=== PATIENT | female | born 1965 | race Caucasian/White ===

== ENCOUNTER 2021-05-15 06:44 | Outpatient (REF) | payer OTHER, SELFPAY ==
[2021-05-15 11:13] LABS: MANUAL DIFF FLAG NO
[2021-05-15 11:36] LABS: Basophils Percent Auto 0.9 % (0-2); Eosinophils Absolute Auto 0.1 X10*3/uL (0.0-0.4); Eosinophils Percent Auto 2.9 % (0-4); Hematocrit 41.5 % (37-47); Hemoglobin 13.4 g/dl (12.0-16.0); Imm Gran Abs Auto 0.01 X10*3/uL (0.00-0.03); Imm Gran Pct Auto 0.2 % (0.0-0.4); Lymphocytes Absolute Auto 0.9 X10*3/uL (1.2-4.9); Lymphocytes Percent Auto 18.9 % (20-40); Mean Corpuscular HGB Conc 32.3 g/dl (31.0-35.0); Mean Corpuscular Hemoglobin 31.5 pg (27.0-33.0); Mean Corpuscular Volume 97.4 fL (80-98); Monocytes Absolute Auto 0.5 X10*3/uL (0.1-1.2); Neutrophils Percent Auto 66.1 % (45-73); Platelet Count 266 X10*3/uL (160-400); Red Blood Count 4.26 X10*6/uL (4.20-5.50); Red Cell Distribution Width 12.7 % (11.0-16.0); White Blood Count 4.6 X10*3/uL (4.8-10.8)
[2021-05-15 11:58] LABS: Alanine Aminotransferase 9 U/L (0-31); Anion Gap 14 (12-20); Aspartate Amino Transferase 12 U/L (5-31); Blood Urea Nitrogen 15 mg/dL (9-16); Calcium 9.6 mg/dL (8.4-10.2); Carbon Dioxide 27 mmol/L (22-29); Chloride 107 mmol/L (96-108); Cholesterol 194 mg/dL; Estimated Glomerular Filt Rate > 60; Glucose Fasting 86 mg/dL (60-99); HDL Cholesterol 48 mg/dL; LDL Cholesterol Calculated 123 mg/dl; Potassium 4.3 mmol/L (3.3-5.1); Sodium 144 mmol/L (135-145); Triglycerides 116 mg/dL
[2021-05-15 12:19] LABS: Vitamin D 25-OH Total 11.9 ng/mL (>30)
== END 2021-05-15 06:45 | disposition home or self-care (01) ==
LOC: HO.HMGCLDS 06:44
PROVIDERS: PCP Internal Medicine; Visit Provider Internal Medicine
DX: C53.9 Malignant neoplasm of cervix uteri, unspecified (principal); I10 Essential (primary) hypertension; K21.9 Gastro-esophageal reflux disease without esophagitis
CPT/HCPCS: 36415; 80048; 80061; 82306; 84450; 84460; 85025

== ENCOUNTER 2022-07-08 10:12 | Outpatient (REF) | payer OTHER, SELFPAY ==
[2022-07-08 11:20] LABS: MANUAL DIFF FLAG NO
[2022-07-08 11:27] LABS: Basophils Percent Auto 0.7 % (0-2); Eosinophils Absolute Auto 0.1 X10*3/uL (0.0-0.4); Eosinophils Percent Auto 1.3 % (0-4); Hematocrit 47.6 % (37.0-47.0); Hemoglobin 15.4 g/dl (12.0-16.0); Imm Gran Abs Auto 0.01 X10*3/uL (0.00-0.03); Imm Gran Pct Auto 0.2 % (0.0-0.4); Lymphocytes Absolute Auto 0.7 X10*3/uL (1.2-4.9); Mean Corpuscular HGB Conc 32.4 g/dl (31.0-35.0); Mean Corpuscular Hemoglobin 29.8 pg (27.0-33.0); Mean Corpuscular Volume 92.2 fL (80.0-98.0); Mean Platelet Volume 10.2 fL (9.4-12.3); Monocytes Absolute Auto 0.4 X10*3/uL (0.1-1.2); Monocytes Percent Auto 9.5 % (2-11); Neutrophils Absolute Auto 3.4 x10*3/uL (2.0-8.3); Neutrophils Percent Auto 73.3 % (45-73); Platelet Count 255 X10*3/uL (160-400); Red Blood Count 5.16 X10*6/uL (4.20-5.50); Red Cell Distribution Width 12.4 % (11.0-16.0); White Blood Count 4.6 X10*3/uL (4.8-10.8)
[2022-07-08 14:35] LABS: Alanine Aminotransferase 12 U/L (0-31); Anion Gap 16 (12-20); Aspartate Amino Transferase 17 U/L (5-31); Blood Urea Nitrogen 11 mg/dL (9-16); Calcium 9.7 mg/dL (8.4-10.2); Carbon Dioxide 28 mmol/L (22-29); Chloride 103 mmol/L (96-108); Cholesterol 239 mg/dL; Estimated Glomerular Filt Rate > 60; Glucose Fasting 108 mg/dL (60-99); HDL Cholesterol 57 mg/dL; LDL Cholesterol Calculated 157 mg/dl; Potassium 4.3 mmol/L (3.3-5.1); Sodium 143 mmol/L (135-145); Triglycerides 128 mg/dL
[2022-07-08 14:58] LABS: TSH reflex Free T4 0.82 uIU/mL (0.32-4.0); Vitamin D 25-OH Total 15.1 ng/mL (>30)
== END 2022-07-08 10:13 | disposition home or self-care (01) ==
LOC: HO.HMGCLDS 10:12
PROVIDERS: PCP Internal Medicine; Visit Provider Internal Medicine
DX: K21.9 Gastro-esophageal reflux disease without esophagitis (principal); I10 Essential (primary) hypertension; R00.2 Palpitations; R45.0 Nervousness; G47.00 Insomnia, unspecified
CPT/HCPCS: 36415; 80048; 80061; 82306; 84443; 84450; 84460; 85025

== ENCOUNTER → 2022-10-12 13:44 | Outpatient (BNVA) | payer BC, SELFPAY | PROVIDERS: PCP Internal Medicine; Referring Provider Internal Medicine; Visit Provider Internal Medicine | DX: Z13.89 Encounter for screening for other disorder (principal) ==

== ENCOUNTER → 2022-11-12 13:40 | Outpatient (REF) | payer BC, SELFPAY ==
--- NOTE | 2022-11-12 | CA_ITS ---
Transthoracic Echocardiogram Patient (Last, First, Middle): Breonna Hargrove L Gender: Female Date of : 1965 Age: 56 Procedure Date: 11/12/2022 Procedure Type: Transthoracic Echocardiogram Location: OP Height: 162.56 cm Weight: 95.26 kg BSA: 2.00 m2 Heart Rate: 61 bpm BP: 118 / 68 mmHg Informatics Analyst: Referring MD: Ranjan Salomon MD Symptoms: I48.91 - Unspecified atrial fibrillation Study Quality: Adequate w contrast ECG Rhythm: Sinus Conclusions: - The left ventricular systolic function is normal. The visually estimated ejection fraction is between 55-60%. - No obvious valvular pathology seen on this study. Findings Procedure Information Contrast agent, definity, is being given per protocol without apparent complications. Left Ventricle Normal left ventricular cavity size. There is normal left ventricular wall thickness. The left ventricular systolic function is normal. The visually estimated ejection fraction is between 55-60%. There is no evidence of regional wall motion abnormalities. Diastolic function is normal for age. Right Ventricle Normal right ventricular cavity size and systolic function. Atria Both atria are normal in size. Aortic Valve The aortic valve was not well visualized. There is no aortic valve stenosis. There is no aortic valve regurgitation. Mitral Valve The mitral valve appears normal. There is no mitral valve regurgitation. There is no mitral valve stenosis. Pulmonic Valve The pulmonic valve is likely normal. Tricuspid Valve The tricuspid valve was not well visualized. There is trace tricuspid valve regurgitation. There is no evidence of pulmonary hypertension. Great Vessels The asc aorta is normal in size. Venous The inferior vena cava is normal in size and collapses greater than 50% with inspiration. Pericardium/Pleural There is no evidence of pericardial effusion. Prior Study Comparison No prior study available for comparison. Recommendations, Care & Conclusions No obvious valvular pathology seen on this study. Measurements 2D Linear Measurements IVSd: 0.72 0.6-0.9/0.6-1.0 cm LVIDd: 4.17 3.9-5.3/4.2-5.9 cm LVIDd Index: 2.09 2.4-3.2/2.2-3.1 cm/m2 LVIDs: 2.60 2.0-3.6 cm LVPWd: 0.82 0.7-1.1 cm LA Diam: 3.00 2.7-3.8/3.0-4.0 cm LAIDs Index: 1.50 1.5-2.3 cm/m2 LV Mass: 118.10 67-162/88-224 g LV Mass Index: 59.05 43-95/49-115 g/m2 LVOT Diam: 2.40 3.0+(-)1.3 cm 2D Systolic Function EF 4C: 61.30 >55% EF 2C: 60.90 >55% EF BiP: 59.80 >55% Mitral Valve MV Pk E: 0.77 MV PK A: 0.58 MV Decel Time: 225.00 E/A: 1.30 E'Lateral: 15.00 E'Medial: 9.46 E/E' Med: 8.10 E/E' Lat: 5.10 PHT: 66.00 MVA PHT: 3.33 Decel Dodge: 3.40 Aortic Valve AoV Pk Fransisco: 1.05 AoV Mn Fr[place]isco: 0.67 AoV VTI: 0.28 AoV Pk Grad: 4.00 Aov Mn Grad: 2.00 MAKAYLA Cont.VTI: 3.02 LVOT LVOT Pk [place]: 0.75 LVOT Mn [place]: 0.45 LVOT VTI: 0.19 LVOT Pk Grad: 2.00 LVOT Mn Grad: 1.00 LVOT Diam: 2.40 LVOT Area: 4.52 Diastolic Function MV Pk E: 0.77 MV Pk A: 0.58 E/A: 1.30 E'Medial: 9.46 E/E' Med: 8.10 E' Laterial: 15.00 E/E' Lat: 5.10 Right Ventricle TAPSE (mm): 25.30 TVS' Fransisco: 10.10 Tricuspid Valve TR Pk Fr[place]: 1.88 TR Pk Grad: 14.00 RA Press: 3.00 RVSP: 17.00 Great Vessels Aorta Sinus of Valsalva: 3.20 2.0-3.5 cm Ao Asc: 3.00 2.1-3.4 cm Pulmonary Valve PV Pk Fransisco: 0.73 Peak PV Grad: 2.00 Updated in Other Vendor System with Status of Final Ranjan Salomon MD electronically signed on 11/13/2022 1:11:43 PM with status of Final
--- NOTE | 2022-11-12 13:44 | HM_ITS ---
* Total monitoring time about 7 days. * Underlying rhythm is sinus. Average ventricular rate 64/Min. Range 47 to 115/Min. * Occasional PACs with a burden of 0.35%. Very brief runs noted. * Occasional PVCs with a burden of 0.02%. Rare couplets, 1 triplet. No significant runs. * No pauses or AV blocks. * No patient markers or events in diary. MTDD
== END ==
LOC: HO.CARD 13:40
PROVIDERS: Visit Provider Internal Medicine
DX: I48.91 Unspecified atrial fibrillation (principal)
CPT/HCPCS: 93242; 93306; Q9957

== ENCOUNTER 2024-04-28 11:41 | Outpatient (AMB) | payer BC, SELFPAY ==
[2024-04-28 11:44] VITALS: BP 144/90; PULSE 62; TEMP 36.6; O2SAT 98; BMI 36.9
--- NOTE | 2024-04-28 11:44 | AM.OFFWIN_ITS ---
Intake Vital Signs 04/28/24 11:44 Height 5 ft 4 in Weight 215 lb BMI 36.9 BP 144/90 H Blood Pressure Location Rt brachial Position Sitting Pulse 62 Pulse Source Pulse Oximeter Temp 97.9 F Temp Source Temporal Artery Scan Pulse Oximetry (%) 98 Oxygen Delivery Method Room Air Intake Visit Reasons: EP fire pain feet/?bp Intake Note: pt is here for feet pain and possible high bp Patient Tobacco Use Status: Current everyday Tobacco user Allergies Penicillins [PENICILLINS] Allergy (Intermediate, Verified 04/28/24 11:44) HIVES PEACHES Allergy (Unknown, Uncoded 10/12/22 13:52) HIVES Do you need a note to return to daycare/school/sports/work: No HPI HPI Comments History of Present Illness Details 58 year old female presents for bilatera l burning of the feet, endorses some numbness lower top of the feet. There addition patient has been without her blood pressure medication. Patient has appointment scheduled with her primary on the but her primary recommended she come to the walk-in for concern blood pressure being cause of patient's feet pain. Patient states she does have a history of neuropathy back when she was 23 it was idiopathic in nature. She received multiple modalities of treatment as well as other or specialist evaluations. Pain is described as a deep burning sensation worse with standing and moving no overt swelling no calf tenderness [facility] Medical History (Updated 04/28/24 @ 14:52 by JASON Bella) PAF (paroxysmal atrial fibrillation) Atrial fibrillation with rapid ventricular response Insomnia History of renal calculi Opiate addiction History of meningitis Smoker unmotivated to quit Squamous cell carcinoma of cervix, stage 2 GERD (gastroesophageal reflux disease) Essential hypertension Surgical History No pertinent past surgical history Family History Mother Leukemia Maternal Grandmother Ovarian cancer Diabetes mellitus Sister Diabetes mellitus Social History Housing: Apartment Patient Tobacco Use Status: Current everyday Tobacco user Cigarettes Per Day: 10 e-Cigarette/Vaping Use: Never Used service: No Current occupational status: employed Cognitive needs: No Hearing needs: No Vision needs: Yes Physical Exam Vital Signs: Last Vital Signs Temp 97.9 F 04/28/24 11:44 Pulse 62 04/28/24 11:44 BP 144/90 H 04/28/24 11:44 Pulse Ox 98 04/28/24 11:44 Oxygen Delivery Method Room Air 04/28/24 11:44 BMI result Body Mass Index 36.9 Const General: cooperative, healthy appearing, no acute distress and alert Orientation/consciousness: patient oriented x3 Limitations: no limitations HEENT Head: Yes normal to inspection Ears: hearing grossly normal bilaterally General nose exam: Normal external nose present Resp Effort & Inspection: normal respiratory effort and able to speak in complete sentences Cardio Rate: regular rate Skin General skin exam: no rashes or lesions noted Neuro General: patient oriented x3 Extrem Other: No lower extremity swelling mild numbness on the dorsum of the foot bilaterally. No tenderness to palpation on the plantar surface of the foot bilaterally General: Yes normal to inspection Assessment & Plan Assessment & Plan (1) Essential hypertension: Code(s): I10 - Essential (primary) hypertension Plan: Blood pressure mildly elevated 140s over 90s. Will refill patient's hypertension medication (2) Bilateral foot pain: Code(s): M79.671 - Pain in right foot; M79.672 - Pain in left foot Plan: Given patient's presentation of suspicion could be return if patient has idiopathic neuropathy. Patient's blood pressure mildly elevated today no swelling or edema low suspicion that is contributing to patient's pain. Offered topical solutions to use in preparation for patient's appointment for the . Patient would like to wait right now and speak to her primary on the 10 as she has dealt with this before and feels it is currently manageable. Medications: New lisinopril 5 mg PO DAILY 90 tabs 0RF Coding Level of Care Code Est Pt Level 4 (75401) Diagnoses Essential hypertension I10 Bilateral foot pain M79.671; M79.672
--- OUTSIDE RECORDS SUMMARY | 2024-04-29 00:38 | XMS_ITS | Continuity of Care Document ---
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 Oncology [address] [place] [id number] Attending Physician: Tamika Patrick Admitting Physician: Tamika Patrick Referring Physician: Tamika Patrick Allergies, Adverse Reactions, Alerts Substance Reaction Severity Status penicillin rash Active Eddy hives Active Medications lisinopril 5 mg oral tablet 5 mg, 1, tablet, By Mouth, Daily, Refills 0, Maintenance, 07/02/19 9:09:02 EDT Start Date: 07/02/19 Status: Ordered Prilosec OTC = 20 mg, By Mouth, Daily, 0 Refills, Maintenance, 02/09/20 10:51:00 EDT Start Date: 02/09/20 Status: Ordered Problem List Condition Confirmation Course Effective Dates Status Health St at[facility] Informant Fatty liver Confirmed Active Hypertension Confirmed Active Cervical cancer Confirmed Active Obese class II Confirmed Active OBESITY Confirmed Active UNSPECIFIED IDIOPATHIC PERIPHERAL NEUROPATHY--painful Confirmed 1994 Active Social History Social History Type Response Smoking Status 5-9 cigarettes (betw een 1/4 to 1/2 pack)/day in last 30 days entered on: 07/02/19 Sex Patient Care team information Care Team Personnel Name: Eden Oconnor Position: S Onco RN Member Role: Primary Care Nurse Name: Dania Bailey MD Position: Reference Physician Member Role: PCP Address: Address: [address] [place], [place] [address] Name: Roger VILLATORO, Parvin Martinez Position: [facility] Nurse Member Role: Primary Care Nurse Care Team Related Persons Name: YOVANI POPE Name: JAYY BEAULIEU Address: home [address] [place] [address] Name: STEFFANIE BEAULIEU Address: home [address] [place] [id number]
--- OUTSIDE RECORDS SUMMARY | 2024-04-29 00:38 | XMS_ITS | Continuity of Care Document ---
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 Oncology [address] [place] [address]- Attending Physician: Deisy Brown MD Admitting Physician: Deisy Brown MD Referring Physician: Dania Bailey MD Allergies, Adverse Reactions, Alerts Substance Reaction Severity Status penicillin rash Active Haines hives Active Medications lisinopril 5 mg oral [...] Physician Member Role: PCP Address: Address: [address] [place] [address]- Name: Roger VILLATORO, Parvin Martinez Position: [facility] Nurse Member Role: Primary Care Nurse Care Team Related Persons Name: YOVANI POPE Name: JAYY BEAULIEU Address: home [address] [place] [address] Name: STEFFANIE BEAULIEU Address: home [address] [place] [id number]
== END 2024-04-28 12:25 | disposition home or self-care (01) ==
PROVIDERS: PCP Internal Medicine; Visit Provider Physician Assistant
DX: I10 Essential (primary) hypertension (principal); M79.671 Pain in right foot; M79.672 Pain in left foot
CPT/HCPCS: 99214

== ENCOUNTER 2024-05-15 13:03 | Outpatient (AMB) | payer BC, SELFPAY ==
--- NOTE | 2024-05-15 13:20 | MHC.PC.OV ---
Vital Signs 05/15/24 13:22 Height 5 ft 4 in Weight 208 lb BMI 35.7 BP 116/70 Blood Pressure Location Lt brachial Position Sitting Pulse 70 Pulse Source Pulse Oximeter Pulse Oximetry (%) 97 Oxygen Delivery Method Room Air Intake Visit Reasons: f/u BP check Intake Note: Patient here for BP f/u and pain in bilat feet Allergies Penicillins [PENICILLINS] Allergy (Intermediate, Verified 05/15/24 13:35) HIVES PEACHES Allergy (Unknown, Uncoded 05/15/24 13:35) HIVES Medication List - Last Reconciled 05/15/24 by Dania Bailey MD aspirin 81 mg PO DAILY famotidine (Pepcid AC) 20 mg PO BEDTIME lisinopril 5 mg PO DAILY metoprolol succinate ER 50 mg PO DAILY Tobacco use date assessed: 05/15/24 Dental Screening Dental Screen Date: 05/15/24 Did you have a dental visit in the last 12 months?: No Did you have a dental problem in the last 6 months where you did not have access to dental care?: No Was dental information given to patient?: Patient has dentist HPI f/u BP check HPI Details 58-year-old lady with hypertension, here today for follow-up on her blood pressure. She states that she has been feeling better, and blood pressure has been well controlled on metoprolol succinate ER at 50 mg daily together with lisinopril 5 mg daily in the morning. She however complains of persistent pain in both feet described numbness and tingling more so on the right, which has been present now for the last several weeks. Patient denies history of trauma. Has been taking ibuprofen and Tylenol which has not afforded any relief [facility] Medical History Pain in both feet Paresthesia of both feet PAF (paroxysmal atrial fibrillation) Atrial fibrillation with rapid ventricular response Insomnia History of renal calculi Opiate addiction History of meningitis Smoker unmotivated to quit Squamous cell carcinoma of cervix, stage 2 GERD (gastroesophageal reflux disease) Essential hypertension Surgical History No pertinent past surgical history Family History Mother Leukemia Maternal Grandmother Ovarian cancer Diabetes mellitus Sister Diabetes mellitus Social History Housing: Apartment Patient Tobacco Use Status: Current everyday Tobacco user Cigarettes Per Day: 10 e-Cigarette/Vaping Use: Never Used service: No Current occupational status: employed Cognitive needs: No Hearing needs: No Vision needs: Yes Questionnaire PHQ-9 Over the last 2 weeks, how often have you been bothered by any of the following problems? 1. Little interest or pleasure in doing things: not at all 2. Feeling down, depressed, or hopeless: not at all 3. Trouble falling or staying asleep, or sleeping too much: nearly every day 4. Feeling tired or having little energy: not at all 5. Poor appetite or overeating: not at all 6. Feeling bad about yourself - or that you are a failure or have let yourself or your family down: not at all 7. Trouble concentrating on things, such as reading the newspaper or watching television: not at all 8. Moving or speaking so slowly that other people could have noticed. Or the opposite - being so fidgety or restless that you have been moving around a lot more than usual: not at all 9. Thoughts that you would be better off or of hurting yourself in some way: not at all Total score: 3 Depression Screening Interpretation: Negative Depression Screening Done: Yes 19958 - PHQ-9 Billing: Yes Source: Developed by Drs. Tree Helms, Janet An, Lopez Pereira and colleagues, with an educational huyen from [employer]. Thrive Questionnaire Date Thrive assessed: 05/09/24 I am a: Patient What is your living situation today?: I have a steady place to live Within the past 12 months, did the food you bought not last and you didn't have the money to get more?: Never true Within the past 12 months, did you worry whether your food would run out before you got money to buy more?: Never true Do you have trouble paying for medicines?: No Do you have trouble getting transportation to medical appointments?: No Do you have trouble paying your heating and electricity bill?: No Do you have trouble taking care of your child, family member or friend?: No Do you have trouble with day-to-day activities such as bathing, preparing meals, shopping, managing finances, etc.?: No Are you currently unemployed and looking for a job?: No Are you interested in more education?: No Please select the resources that you would like help with: None Currently or been in a relationship where the following occur: No concerns reported THRIVE Score: 0 AUDIT C Alcohol Use Questionnaire (AUDIT-C) 1. How often do you have a drink containing alcohol?: Monthly or less 2. How many drinks containing alcohol do you have on a typical day when you are drinking?: 1 or 2 3. How often do you have six or more drinks on one occasion?: Never Total Score: 1 Score Reviewed/Action Taken: No ANA-7 AMB Questionnaire ANA-7 Date ANA - 7 assessed: 05/15/24 Feeling nervous, anxious, or on edge: 0 = Not at all Not being able to stop or control worryin = Not at all Worrying too much about different things: 0 = Not at all Trouble relaxin = Not at all Being so restless that it is hard to sit still: 0 = Not at all Becoming easily annoyed or irritable: 0 = Not at all Feeling afraid as if something awful might happen: 0 = Not at all Total ANA-7 score (0-4 normal; 5-9 mild; 10-14 moderate; 15-21 severe): 0 Source: Developed by Drs. Tree Helms, Janet An, Lopez Pereira and colleagues, with an educational huyen from [employer]. ANA-7 Assessment Billing ANA-7 Assessment Tool: ANA-7 Assessment 64364 Review of Systems Const Denies chills, Denies daytime sleepiness, Denies fatigue, Denies fever(s), Denies frequent falls, Denies night sweats, Denies snoring and Denies weakness ENT Denies dizziness Card Denies chest pain, Denies syncope, Denies rapid heart rate, Denies leg edema, Denies lightheadedness, Denies palpitations, Denies dyspnea and Denies dyspnea on exertion Resp Denies cough, Denies dyspnea, Denies dyspnea on exertion and Denies snoring GI Denies abdominal pain, Denies change in bowel habits, Denies change in stool character, Denies heartburn and Denies nausea Denies hematuria, Denies urinary frequency and Denies dysuria Musc Denies muscle weakness Skin/Breast Denies nail changes and Denies rash Neuro Denies Abnormal speech present, Denies dizziness, Denies syncope, Denies frequent falls and Denies weakness Endo Denies fatigue and Denies palpitations Physical exam (Primary Care) Vital Signs: Last Vital Signs Pulse 70 05/15/24 13:22 BP 116/70 05/15/24 13:22 Pulse Ox 97 05/15/24 13:22 Oxygen Delivery Method Room Air 05/15/24 13:22 BMI result Body Mass Index 35.7 Tobacco/Smoking Status: Tobacco use Status Tobacco use date assessed 05/15/24 05/15/24 13:25 Patient Tobacco Use Status Current everyday Tobacco 05/15/24 13:22 e-Cigarette/Vaping Use Never Used 05/15/24 13:22 PHQ-9: PHQ-9 Score PHQ-9: Total score 3 05/15/24 13:47 Depression Screening Interpretation: Negative Thrive Assessment: Date of Thrive Assessment Date Thrive assessed 05/09/24 05/15/24 13:22 Currently or been in a relationship where the following occur: No concerns reported Const General: no acute distress Orientation/consciousness: patient oriented x3 Limitations: no limitations HENMT Ears: hearing grossly normal bilaterally and external ears normal General nose exam: Normal external nose present and No nasal discharge present Mouth: Normal oral and palatal mucosa present, oropharynx normal and moist mucous membranes Eyes General: appearance normal, both eyes and all related structures Neck Neck: Yes full ROM, Yes no lymphadenopathy and Yes supple Resp Effort & Inspection: normal respiratory effort and able to speak in complete sentences Auscultation: clear to auscultation bilaterally Cardio Other: Irregularly irregular rhythm GI Inspection: Yes normal to inspection Palpation (GI): Soft to palpation, nontender and no masses Auscultation: normal bowel sounds Skin General skin exam: no rashes or lesions noted Neuro General: patient oriented x3, gait normal, tone normal, moves all extremities, Normal light touch and pain sensation and no focal motor deficits Cognition (Neuro): normal cognition Speech: No Abnormal speech present Gait exam (Neuro): Normal gait present Motor exam (neuro): 5/5 motor strength present throughout Extrem General: Yes full ROM, Yes no joint enlargement, Yes no calf tenderness and Yes normal gait Psych Appearance: well kempt Mental Status: mental status grossly normal Speech and movement: Normal speech and movement present Affect: normal affect Attitude: cooperative Thought process: Normal thought process present Assessment and Plan Assessment & Plan (1) Essential hypertension: Code(s): I10 - Essential (primary) hypertension Plan: Blood pressure at goal of less than 130/80. Continue with current medication. Reinforced importance of following a low sodium diet, getting regular exercise, and lowering stress levels. (2) Paresthesia of both feet: Code(s): R20.2 - Paresthesia of skin (3) Pain in both feet: Code(s): M79.671 - Pain in right foot; M79.672 - Pain in left foot Plan: Ordered basic metabolic panel, vitamin B12, folic acid level, vitamin-D level and TSH with reflex free T4 as well as hemoglobin and hematocrit. X-ray of right foot ordered. Referral to podiatry ordered Plan Ordered basic metabolic panel, vitamin B12, folic acid level, vitamin-D level and TSH with reflex free T4 as well as hemoglobin and hematocrit. X-ray of leftt foot ordered. Referral to podiatry ordered Orders: Orders Basic Metabolic Panel Fasting 05/15/24 I10 - Essential (primary) hypertension, R20.2 - Paresthesia of skin Vitamin B12 and Folate 05/15/24 I10 - Essential (primary) hypertension, R20.2 - Paresthesia of skin Vitamin D 25-OH Total 05/15/24 I10 - Essential (primary) hypertension, R20.2 - Paresthesia of skin TSH reflex Free T4 05/15/24 I10 - Essential (primary) hypertension, R20.2 - Paresthesia of skin Hemoglobin and Hematocrit 05/15/24 I10 - Essential (primary) hypertension, R20.2 - Paresthesia of skin Referrals Podiatry Referral M79.671 - Pain in right foot, M79.672 - Pain in left foot, R20.2 - Paresthesia of skin Coding Level of Care Code Est Pt Level 3 (54745) Diagnoses Essential hypertension I10 Paresthesia of both feet R20.2 Pain in both feet M79.671; M79.672 Additional Codes ANA-7 Assessment Billing - ANA-7 Assessment Tool: ANA-7 Assessment 08822 ([id number])
[2024-05-15 13:22] VITALS: BP 116/70; PULSE 70; O2SAT 97; BMI 35.7
== END 2024-05-15 13:49 | disposition home or self-care (01) ==
PROVIDERS: PCP Internal Medicine; Visit Provider Internal Medicine
DX: I10 Essential (primary) hypertension (principal); R20.2 Paresthesia of skin; M79.671 Pain in right foot; M79.672 Pain in left foot
CPT/HCPCS: 99213

== ENCOUNTER 2024-05-15 13:50 | Outpatient (REF) | payer BC, SELFPAY ==
--- NOTE | ~2024-05-15 | XR_ITS ---
EXAMINATION: XR FOOT, LEFT CLINICAL INFORMATION: Pain in left foot COMPARISON: None available. TECHNIQUE: AP, lateral, and oblique views of the left foot. FINDINGS: The bones and soft tissues are normal. No fracture. Alignment is anatomic. Joint spaces are maintained. There is small posterior calcaneal spur XR/XR foot LT min 3V IMPRESSION: Small posterior calcaneal spur Electronically signed by: Matt Amanda MD 05/25/2024 02:10 PM EDT
--- NOTE | ~2024-05-15 | XR_ITS ---
EXAMINATION: XR FOOT, RIGHT CLINICAL INFORMATION: Pain in the right foot COMPARISON: None available. TECHNIQUE: AP, lateral, and oblique views of the right foot. FINDINGS: The bones and soft tissues are normal. No fracture. Alignment is anatomic. Joint spaces are maintained. There is small plantar calcaneal spur XR/XR foot RT min 3V IMPRESSION: Small plantar calcaneal spur Electronically signed by: Matt Amanda MD 05/25/2024 02:09 PM EDT
== END 2024-05-15 13:51 | disposition home or self-care (01) ==
LOC: HO.HMGCX 13:50
PROVIDERS: PCP Internal Medicine; Visit Provider Internal Medicine
DX: M79.671 Pain in right foot (principal); M79.672 Pain in left foot
CPT/HCPCS: 73630

== ENCOUNTER 2024-05-21 06:07 | Outpatient (REF) | payer BC, SELFPAY ==
[2024-05-21 10:24] LABS: Hematocrit 42.4 % (37.0-47.0); Hemoglobin 13.8 g/dl (12.0-16.0)
[2024-05-21 11:10] LABS: Anion Gap 10 (12-20); Blood Urea Nitrogen 16 mg/dL (9-16); Calcium 9.6 mg/dL (8.4-10.2); Carbon Dioxide 30 mmol/L (22-29); Chloride 107 mmol/L (96-108); Estimated Glomerular Filt Rate > 60; Glucose Fasting 103 mg/dL (60-99); Potassium 4.3 mmol/L (3.3-5.1); Sodium 143 mmol/L (135-145)
[2024-05-21 11:11] LABS: TSH reflex Free T4 2.93 uIU/mL (0.32-4.0); Vitamin D 25-OH Total 30.4 ng/mL (>30)
[2024-05-21 11:30] LABS: Folate 9.5 ng/mL (> or = 4.0); Vitamin B12 254 pg/mL (200-900)
== END 2024-05-21 06:08 | disposition home or self-care (01) ==
LOC: HO.HMGCLDS 06:07
PROVIDERS: PCP Internal Medicine; Visit Provider Internal Medicine
DX: I10 Essential (primary) hypertension (principal); R20.2 Paresthesia of skin
CPT/HCPCS: 36415; 80048; 82306; 82607; 82746; 84443; 85014; 85018

== ENCOUNTER 2024-08-21 13:17 | Outpatient (AMB) | payer BC, SELFPAY ==
--- OUTSIDE RECORDS SUMMARY | 2024-08-21 13:19 | XMS_ITS | Patient Health Record ---
[facility] Address [address] [place] [address] Care Team Providers Care [employer] Attendant Name Role Phone Leo MALAGON, Dania Hancock Primary Care Provider Un available Macey Farah Unavailable [phone] Allergies Allergen (clinical drug ingredient) Drug/Non Drug Allergy documented on EMR Reaction Allergy Type Onset Date Status [place] Flavor hives Drug Allergy Acti ve Penicillin hives Drug Allergy Active Reason For Referral No Information Medications Medication SIG (Take, Route, Frequency, Duration) Notes Start Date End Date Status Lisinopril 5 MG 2 tablets Orally Onc e a day for 30 day(s) 07/23/2024 Active Pepcid 20 MG 1 tablet at bedtime as needed Orally Once a day Active Metoprolol Succinate 50 MG 1 capsule Ora lly Once a day Active Social History Tobacco Use: Social History Observation Description Date Details (start date - stop date) Current Smoker 07/06/2014 - NA Tobacco Use/Smoking Question Answer Notes Are you a: current smoker When did you start smoking? 07/06/2014 How often do you smoke cigarettes? every day How many cigarettes a day do you smoke? 11-20 Additional Findings: Tobacco User Modera te cigarette smoker (10-19 cigs/day) Alcohol Screen Question Answer Notes Did you have a drink containing alcohol in the p ast year? No Points 0 Interpretation Negative Tobacco use other than smoking: Question Answer Notes Are you an other tobacco user? 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 Problem [id number] Gastrocnemius equinus of left lower extremity (M62.462) Active confirmed Vital Signs Height 5ft4in in 07/23/2024 Weight 210 lbs 07/23/2024 BMI 36.04 kg/m2 07/23/2024 Encounters Encounter Location Date Provider Diagnosis [facility] [place] [address] [place] [address] 07/23/2024 Macey Jensenaker Pain in left foot M79.672 ; Plantar fasciitis of left foot M72.2 ; Calcaneal spur, left foot M77.32 ; Interstitial myositis of left foot M60.172 ; Bursitis of left foot M77.52 ; Pain in right toe(s) M79.674 ; Onychomycosis B35.1 ; Pain in left toe(s) M79.675 and Gastrocnemius equinus of left lower extremity M62.462 Assessments Encounter Date Diagnosis (ICD Code) Assessment Notes Treatment Notes Treatment Clinical Notes Section Notes 07/23/2024 Pain in left foot (ICD-10 - M79.672) 07/23/2024 Plantar fasciitis of left foot (ICD-10 - M72.2) Patient Educated with: HEEL CORD STRETCHES.pdf (HEEL CORD STRETCHES.pdf) Patient Educated with: RICE THERAPY.pdf (RICE THERAPY.pdf) 07/23/2024 Calcaneal spur, left foot (ICD-10 - M77.32) 07/23/2024 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) 07/23/2024 Bursitis of left foot (ICD-10 - M77.52) 07/23/2024 Pain in right toe(s) (ICD-10 - M79.674) 07/23/2024 Onychomycosis (ICD-10 - B35.1) 07/23/2024 Pain in left toe(s) (ICD-10 - M79.675) 07/23/2024 Gastrocnemius equinus of left lower extremity (ICD-10 - M62.462) 07/23/2024 Other Patient Educated with: RICE THERAPY.pdf (RICE THERAPY.pdf) Patient Educated with: INJECTIONTHERA PY.pdf (INJECTIONTHER APY.pdf) Plan Of Treatment Next Appt Details Provider Name:Macey reynaga, 09/06/2024 04:00:00 PM, [address] [place] [address], [id number], Insurance Providers Payer Name Payer Address Payer Phone Subscriber Number Group Number Insured Name Patient Relationship to Insured Coverage Start Date Coverage End Date [facility] [address] [place] [address] [id number]arg[address] Self - patient is the insured Medical (General) History Medical History History ICD Code Anemia Cancer High Blood Pressure Chicken pox
--- OUTSIDE RECORDS SUMMARY | 2024-08-21 13:19 | XMS_ITS ---
Author Organization [facility] Address [address] [place] [address] Care Team Providers Care Special Inspector Name Role Phone Leo MALAGON, Dania Hancock Primary Care Provider Un available Macey Farah Unavailable [phone] Allergies Allergen (clinical drug ingredient) Drug/Non Drug Allergy documented on EMR Reaction Allergy Type Onset Date Status Thomas Flavor hives Drug Allergy Acti ve Penicillin hives Drug Allergy Active REASON FOR VISIT PCP: 05/2024, Heel pain, Fungal Nails Medications Medication SIG (Take, Route, Frequency, Duration) [...] W/U Status Risk Notes Problem Plantar fasciitis of left foot (6246467413821 9101) Plantar fasciitis of left foot (M72.2) Active confirmed Problem Interstitial myositis ([id number]) 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) Active confirmed Problem Plantar fasciitis (601152428) Plantar fasciitis (M72.2) Active confirmed Resistant to previous conservative treatment Problem [id number] Gastrocnemius equinus of left lower extremity (M62.462) Active confirmed Vital Signs Height 5ft4in in 07/23/2024 Weight 210 lbs 07/23/2024 BMI 36.04 kg/m2 07/23/2024 Encounters Encounter Location Date Provider Diagnosis [facility] [address] [place] [address] 07/23/2024 Macey Farah Pain in left foot M79.672 ; Plantar [...] INJECTIONTHERA PY.pdf (INJECTIONTHER APY.pdf) Plan Of Treatment Treatment Notes Assessment Notes Plantar fasciitis of left foot Patient E ducated with: HEEL CORD STRETCHES.pdf (HEEL CORD STRETCHES.pdf) Patient Educated with: RICE THERAPY.pdf (RICE THERAPY.pdf) Other Patient Educated wit h: RICE THERAPY.pdf (RICE THERAPY.pdf) Patient Educated with: INJECTIONTHERAPY.pdf (INJECTIONTHERAPY.pdf) Next Appt Details Follow Up: 6 Weeks, Reason: Provider Name:Macey reynaga, 09/06/2024 04:00:00 PM, [address] [place] [address], [phone], Procedure Notes * Category Sub-Category Detail Notes Injection Tendon Sheath or Fascia 42175, J 9402 Injection - Plantar Fascia w/ mixture of Celestone Soluspan 3mg and 1cc 1 percent Xylocaine Plain anes. utilizing aseptic technique. The patient tolerated the procedure well. A dry sterile dressing was applied. Post injection instructions were dispensed, verbally discussed, and confirmed understood by the patient. I explained that a steroid and local anesthetic injections are administered to relieve pain and inflammation and thereby meant to improve function. I explained the possible complications including but not limited to signs/symptoms of steroid flare, infection, bruising, atrophy, discoloration of skin, change/deviation in toe position, and that additional injections may be necessary, Patient relates post-procedural pain assessment improved at ( 0-1) out of 10 Progress Notes * Chencho HARGROVEB: 8 (58 yo F)Acc No.[id number]:07/23/2024 Progress Notes Patient:?Breonna HARGROVE Provider:?Macey Farah DPM :1965???Age:58 Y???Sex:Female D ate:07/23/2024 Address:[address] [place], [place] [id number] Pcp:Dania Santi C Espinas, M D Subjective: * Chief Complaints: * ???PCP: 05/2024Heel painFunga l Nails * HPI: ???Heel pain:?Location:?Proximal plantar aspect of Heel, LEFT.?Duration:?8 months.?Course:?worse.?Aggravated:?standing, walking, walking first thing in the morning/after rest.?Treatments:?rest/alter normal daily activity , OTC inserts, NSAIDs, licocaine patches, stretching exercises?.?Severity/Quality:?Pre-injection procedure pain assessment - ( 8 ) out of 10.?Misc:?Patient states previous conservative therapy has not provided acceptable relief. Despite previous treatments/efforts, patient continues to relate substantial pain and significant functional disability during activity , The patient denies to have received any vaccine therapy within the past month.?Painful Nails:?Nature:?aching, tender, discolored, thick.?Location:?Great toe, Both feet.?Duration:?several months.?Course:?worse.?Aggravated by:?shoegear causing difficulty standing/walking.?Treatments:?Topical Antifungal, was not successful.? * ROS:?General/Constitutional:?Nausea?denies.?Vomiting?denies.?Hunger Thirst?denies.?Loss appetite?denies.?Chills?denies.?Fatigue?denies.?Fever?denies.?Night Sweats?denies.?Unexplained weight loss?denies.?Unexplained weight gain?denies.?HEENTM:?Dentures?denies.?Dizziness?denies.?Glasses/contacts?admits.?Retinopathy?de nies.?Blurred/double vision?denies.?TMJ?denies.?Discharge/drainage?denies.?Implants?denies.?Sore throat?denies.?Dental implants?denies.?Hard of hearing ?denies.?Difficulty chewing/swallowing/speaking?denies.?Nose bleeds?denies.?Sore mouth?denies.?Respiratory:?On Oxygen?denies.?Pneumonia/pleurisy?denies.?Bronchitis?denies.?Emphysema?denies.?C oughing?denies.?Cough blood?denies.?Shortness of breath?denies.?Wheezing?denies.?Cardiovascular:?Pacemaker?denies.?MVP?denies.?WPW?denies.?CHF?denies.?Heart attack?denies.?Septal defect?denies.?Rapid beat?denies.?Chest pain ?denies.?Atrial Fib.?denies.?Murmur/Palpitations?denies.?Gastrointestinal:?Hemorrhoids?denies.?Stomach/Abdominal pain?denies.?Dark blood stool?denies.?Irritable bowel ?denies.?Constipation?denies.?Diarrhea?denies.?Hematology:?Swelling?denies.?Clots?denies.?Varicose Veins?denies.?Bruising?denies.?Bleeding problem?denies.?Genitourinary:?Blood urine?denies.?Frequent/Painfu/urination/bladder control?denies.?Kidney stones?admits.?Infection (UTI)?denies.?Nephropathy?admits.?sex trans dis (STD)?denies.?Prostate?denies.?Musculoskeletal:?Hammertoes?denies.?Bunions?denies.?Back Pain?denies.?Muscle Cramps/ Resting?denies.?Muscle cramps / walking?denies.?Generalized aches and pains?denies.?Weakness?denies.?Integ.:?Bailey?denies.?Scars?denies.?Corns/calluses?denies.?Ingrown nails?admits.?Painful nails?admits.?Open Sores?denies.?Rashes?denies.?Neurologic:?Difficulty sleeping?admits.?Brain disorder?denies.?Numbness?denies.?Balance trouble?denies.?Confusion?denies.?Fainting/blackouts?denies.?Tingling?denies.?Tr emors?denies.? * Medical History:? * Surgical History:?Denies Pas t Surgical History * Hospitalization/Major Diagno stic Procedure:?Denies Past Hospitalization * Family History:?Mother: dece ased, diagnosed with Other malignant neoplasm of unspecified site.?Father: alive.?Maternal Grand Mother: diagnosed with Diabetic - NIDDM.?Maternal Grand Father: diagnosed with Unspecified essential hypertension.? * Social History:?Tobacco Use:?Tobacco Use/Smoking?Are you a:?current smoker ?When did you start smoking??07/06/2014 ?How often do you smoke cigarettes??every day ?How many cigarettes a day do you smoke??11-20 ?Additional Findings: Tobacco User?Moderate cigarette smoker (10-19 cigs/day) ?Tobacco use other than smoking?Are you an other tobacco user??No ???Drugs/Alcohol:?Drugs?Have you used drugs other than those for medical reasons in the past 12 months??No ?Alcohol Screen?Did you have a drink containing alcohol in the past year??No ?Points?0 ?Interpretation?Negative ???Miscellaneous:?Caffeine: yes, frequency:. ?Children: yes. ?Exercise: no. ?Marital status: single. 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 * Medications:?TakingPepcid 20 MG Tablet 1 tablet at bedtime as needed Orally Once a day Metoprolol Succinate 50 MG Capsule ER 24 Hour Sprinkle 1 capsule Orally Once a day Lisinopril 5 MG Tablet 2 tablets Orally Once a day Medication List reviewed and reconciled with the patientTaking Pepcid 20 MG Tablet 1 tablet at bedtime as needed Orally Once a day Taking Metoprolol Succinate 50 MG Capsule ER 24 Hour Sprinkle 1 capsule Orally Once a day Taking Lisinopril 5 MG Tablet 2 tablets Orally Once a day Medication List reviewed and reconciled with the patient * Allergies:?Penicillin: hives - AllergyPeach Flavor: hives - Allergy Objective: * Vitals:?Ht: 5ft4in, Wt:210, BMI:36.04, Shoe size: 8.5, Ht-cm: 162.56 cm, Wt-k.25 kg. * Examination: ???General Examination: ?GENERAL APPEARANCE:?Reveals a pleasant, alert, well-nourished, well- developed, well hydrated individual, who demonstrates proper attention to hygiene/body habitus, and is in no acute distress, Pt serves as own?historian for office visit today.?ORIENTED:?person, place, and time.?Neurological: ?SENSORY:?Neurological exam reveals intact sensorium, pain sensation normal, vibration sensation intact, pinprick sensation is normal in the lower extremities, Pt denies, anesthesia, burning, paresthesia, tingling, B/L.?TINEL'S COMPRESSION:?Negative tarsal tunnel, odilia pedis, and medial calcaneal nerves.?DEEP TENDON REFLEXES:?Achilles, 2/4, B/L.?Dermatologic: ?SKIN FINDINGS:?Skin exam reveals normal texture, elasticity, and turgor. There are no masses. The interspaces are clear.?Vascular: ?DP PULSES(B):?3/4, B/L.?PT PULSES(B):?3/4, B/L.?CAPILLARY FILL TIME:?immediate, all digits, B/L.?TROPHIC CONDITION-TEXTURE/ELASTICITY/TURGOR/HAIR GROWTH(B):?normal, B/L.?TEMPERTURE GRADIENT(C):?warm to cool, proximal to distal, B/L.?PIGMENTATION:?normal, B/L.?EDEMA(C):?absent, B/L.?Orthopedic: ?MUSCLE STRENGTH:?5/5 all groups in a symmetrical fashion , B/L.?GAIT ABNORMALITY:?antalgic.?FOOT MORPHOLOGY:? Pes Planus structure, Decreased Ankle joint dorsiflexion ROM, knee extended.?FOOTWEAR:?fair condition, OT were inspected and noted to be worn , in fair condition but giving proper support at the present time.?Heel Pain: ?INSPECTION:? Pain on Palpation to Plantar Fascia med. and central bands, intrinsic musc., infra-calcaneal bursa, and med calc tubercle , LEFT foot, No pain: posterior/superior heel, achilles bursa/tendon, sinus tarsi, peroneals, or with lateral heel compression; no limited STJ ROM, calor, or ecchymosis.?Nails: ?NAILS are:?Elongated, overgrown, dystrophic, lytic, greater than 3mm thick, discolored and friable with crumbly malodorous subungual debris, with pain on palpation, TA, T5.? 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 Plan: * Treatment: 2.?Others? Notes: Patient Educated with: RICE THERAPY.pdf (RICE THERAPY.pdf) Patient Educated with: INJECTIONTHERAPY.pdf (INJECTIONTHERAPY.pdf)?? * Procedures:?Injection:?Tendon Sheath or Fascia?54054, J0702 Injection - Plantar Fascia w/ mixture of Celestone Soluspan 3mg and 1cc 1 percent Xylocaine Plain anes. utilizing aseptic technique. The patient tolerated the procedure well. A dry sterile dressing was applied. Post injection instructions were dispensed, verbally discussed, and confirmed understood by the patient. I explained that a steroid and local anesthetic injections are administered to relieve pain and inflammation and thereby meant to improve function. I explained the possible complications including but not limited to signs/symptoms of steroid flare, infection, bruising, atrophy, discoloration of skin, change/deviation in toe position, and that additional injections may be necessary, Patient relates post-procedural pain assessment improved at ( 0-1) out of 10.? * Procedure Codes:?82583 INJ T ENDON SHEATH/LIGAMENT, Modifiers: XS J0702 INJ BETAMETHSN ACTAT&SOD PHOSPH-3MG, Modifiers: XS * Preventive Medicine:? ??Counseling:?Discussion:?-04: Office or other outpatient visit for the evaluation and management of a new patient, which required a medically appropriate history and/or examination and MODERATE level of DECISION MAKING for: 1 OR MORE CHRONIC PROBLEM(S) THATS WORSENING, 2 STABLE CHRONIC PROBLEMS, A NEWLY DIAGNOSED PROBLEM WITH UNCERTAIN PROGNOSIS, AN ACUTE COMPLICATED INJURY WITH MULTIPLE TREATMENT OPTIONS, OR AN ACUTE PROBLEM WITH ACCOMPANYING SYSTEMIC SYMPTOMS, THAT POSE(S) A MODERATE RISK OF MORBIDITY. THIS CONDITION MAY ALSO INCLUDE RX DRUG MANAGEMENT, OR A DECISON FOR MINOR SURGERY. The visit on the day of the encounter encompassed interpreting the data and educating the patient as to the nature of their condition, treatment options available according to their individual PMH, meds, allergies, and overall health/living conditions, as well as any potential risks or complications that may occur from a failure to adhere to, and participate in, the recommended course of therapy. The discussion included a complete verbal, and/or written explanation of the examination results, any x-rays taken, the proposed diagnosis, and outline of the treatment plan. A schedule for future care needs was also explained. The patient verbalized an understanding of the instructions at this time and agreed to be an active participant in their treatment. If the patient should think of any questions or concerns after the visit, I have encouraged the patient to call the office.?Fungal Nail Counseling:?The patient was counseled on the diagnosis, potential etiologies (including, but not limited to, environmental factors, genetic, immune deficiency), and the multiple treatment options for Onychomycosis. We discussed the risks and benefits of each option from performing no treatment, to ultraviolet light shoe treatment, to laser nail treatment, to applying topical antifungals, to taking oral antifungal medication, to surgical removal of the involved nail(s) with or without performing a matricectomy, or any combination thereof. We discussed the advantages and disadvantages of each of possible treatment and importance for adherence to all the recommended therapies for optimum success. This includes the necessity for weekly emery board self nail home debridements, and control the nail and skin environment as much as possible by only using a fresh, dry pair of shoes/socks each day, as well as keeping the skin as dry as possible through the use of sprays/powders if necessary. The patient was instructed to discard the emery board after use to prevent reinfection of the involved nail(s). We discussed the mycological and visual clinical effectiveness of topical vs oral antifungal treatments as well as each ones potential side effects and/or any patient- specific medication interactions. We discussed the reasons behind the important requirement of regular liver function testing with oral antifungal therapy for safety. Patient questions regarding use, dosage, successful outcomes, blood tests, and possible pharmaceutical interactions were reviewed and the patient verbalized that all answers were clearly understood , The patient presently prefers topical treatment, Patient currently has OTC Ciclopirox- advised on usediscussed use of emery board prior to application of topical antifungal and appropriate application technique. Eladio vaporub was also discussed with patient..?Heel pain:?FASCIITIS: I explained to the patient the possible etiologies of Plantar Fasciitis including foot type/shoegear/activity level/exercise routine and the risks/benefits of all the different treatment options for heel pain including: No treatment at all, Rest, Ice, NSAIDs(only if well tolerated after meals), New/supportive Shoegear, Strappings and Tapings, Stretching exercises, Deep Tissue Massage, Heel cups/cushions, Arch support/shoe inserts, Custom orthoses, Topical analgesics including Aspercream/Voltaren gel, Night splint AFO for am stiffness, Cortisone injection therapy, Cast boot with crutches/cane/or walker for assisted ambulation, Physical Therapy, EPAT/ESWT, Interfil injection therapy, as well as surgical [place]/Endoscopic Fasciitomy surgical procedures if needed. Recommendations were made to limit barefoot walking, eliminate wearing nonsupportive shoegear (i.e. flip-flops or sandals, or a shoe with an easily bendable, foldable, or twistable sole) and wear shoegear with a good solid sole, a supportive arch, and plenty of room for an insert/orthotic if necessary. If wearing sandals was required by the patient, we recommended orthopedic sandals such as Orthoheel or Birkenstock even while in the home. If the patient wore heels in the past, we recommended they continue, but eliminate the use of flats. The advantages and disadvantages of each option were discussed and the patients questions re: types of shoegear, custom vs prefabricated inserts, activity level, PO vs Topical medications (and their respective potential complications/drug interactions/side effects), and consistency in home treatment regimens for optimal success were answered to their satisfaction. Literature detailing plantar fasciitis and the various treatment options were dispensed and reviewed.?Orthotics:?I explained to the patient the benefits of OT use. I explained that orthoses are medically necessary to decrease the foot pain through proper mechanical control, support of their foot , decrease stretch/strain on the plantar fascia.?P.R.I.C.E.:?The patient was counseled on the use of P.R.I.C.E. and NSAIDS (if well tolerated) to aid in the recovery from their painful condition, The patient was counseled on the use of P.R.I.C.E. and NSAIDS (if well tolerated) to aid in the recovery from their painful condition.?Shoe Gear Counseling:?The patient and I reviewed the types of shoes they should be wearing. My recommendation included obtaining a well-fitted shoe with a good supportive, non-foldable nor twistable sole, plenty of toe/room for the forefoot, and proper arch support. Based on todays examination, I recommended the patient look for new shoes, by having their feet professionally measured. We discussed that generally the best time of the day for a shoe fitting is the afternoon. Different shoes types and brands to best match the patients occupation and vocation were discussed. Specific brand selection will be up to the patient, their individual foot condition/deformities, and fit. The patient and I reviewed the standard new shoe break in period by wearing them for a few hours a day while checking for redness or sores as wear time is increased. The patient verbally confirmed to understanding the information discussed.?Steriod Injection:?I explained that a steroid and local anesthetic injections are administered to relieve pain and inflammation and thereby meant to improve function. I explained the possible complications including but not limited to signs/symptoms of steroid flare, infection, bruising, atrophy, discoloration of skin, change/deviation in toe position, and that additional injections may be necessary, cortisone post-injection informative educational handout was dispensed to and reviewed with the patient, In order to prevent any compromise of an effective immune response, it was recommended the patient refrain from any vaccine therapy for the next month. Patient verbally confirmed understanding the previously mentioned protocol.?Stretching Exercises:?Stretching and deep tissue massage exercises for the patients injury/diagnosis were discussed and demonstrated, handouts were dispensed.?X-rays:?Discussed and reviewed the X-ray report brought in with patient. We discussed how the findings relate to the patients symptoms/complaints. Answered any and all questions. Patient has an infracalcaneal heel spur, discussed with patient that this is not inherently painful and that the surrounding plantar fasciitis is what is causing her pain. Reiterated the importance of continuing stretching, anti-inflammatories as tolerated. Emphasized the importance of supportive shoe gear..? * Follow Up:?6 Weeks * Images: * Sign off status: Completed true * Provider:?Macey Farah DPM Date:?09/22/2023 Generated for Agnieszka degroot/Piedad/Michelleitting on:?08/21/2024 01:19 PM EST History and Physical Notes * HPI (History of Present Illness) Category Sub-Category Detail Notes Category Not es Heel pain Duration: 8 months Severity/Quality: Pre-injection proced ure pain assessment - ( 8 ) out of 10 Location: Proximal plantar asp ect of Heel, LEFT Aggravated: standing, walking, w alking first thing in the morning/after rest Course: worse Treatments: rest/alter normal da caryn activity , OTC inserts, NSAIDs, licocaine patches, stretching exercises Misc: Patient states previ ous conservative therapy has not provided acceptable relief. Despite previous treatments/efforts, patient continues to relate substantial pain and significant functional disability during activity , The patient denies to have received any vaccine therapy within the past month Painful Nails Aggravated by: shoegear causing difficul ty standing/walking Course: worse Duration: several months Location: Great toe, Both feet Nature: aching, tender, disc olored, thick Treatments: Topical Antifungal, was not successful Examination Category Sub-Category Detail Notes Category Not es Neurological SENSORY: Neurological exa m reveals intact sensorium, pain sensation normal, vibration sensation intact, pinprick sensation is normal in the lower extremities, Pt denies, anesthesia, burning, paresthesia, tingling, B/L TINEL'S COMPRESSION: Negative tarsal renay keiry, odilia pedis, and medial calcaneal nerves DEEP TENDON REFLEXES: Achilles, 2/4, B/L Dermatologic SKIN FINDINGS: Skin exam reveal s normal texture, elasticity, and turgor. There are no masses. The interspaces are clear Orthopedic GAIT ABNORMALITY: antalgic FOOT MORPHOLOGY: Pes Planus structure , Decreased Ankle joint dorsiflexion ROM, knee extended FOOTWEAR: fair condition, OT w ere inspected and noted to be worn , in fair condition but giving proper support at the present time MUSCLE STRENGTH: 5/5 all groups in a symmetrical fashion , B/L General Examination GENERAL APPEARANCE: Reveals a pleasant, alert, well- nourished, well-developed, well hydrated individual, who demonstrates proper attention to hygiene/body habitus, and is in no acute distress, Pt serves as own historian for office visit today ORIENTED: person, place, and t suly Vascular DP PULSES(B): 3, B/L PT PULSES(B): 3/4, B/L CAPILLARY FILL TIME: immediate, all digi ts, B/L TEMPERTURE GRADIENT(C): warm to cool, pr oximal to distal, B/L TROPHIC CONDITION-TEXTURE/ELASTICITY/TURGOR/HAIR GROWTH(B): normal, B/L EDEMA(C): absent, B/L PIGMENTATION: normal, B/L Nails NAILS are: Elongated, overg rown, dystrophic, lytic, greater than 3mm thick, discolored and friable with crumbly malodorous subungual debris, with pain on palpation, TA, T5 Heel Pain INSPECTION: Pain on Palpatio n to Plantar Fascia med. and central bands, intrinsic musc., infra-calcaneal bursa, and med calc tubercle , LEFT foot, No pain: posterior/superior heel, achilles bursa/tendon, sinus tarsi, peroneals, or with lateral heel compression; no limited STJ ROM, calor, or ecchymosis
--- NOTE | 2024-08-21 13:30 | A.OFFPC_ITS ---
Vital Signs 08/21/24 13:45 Height 5 ft 4 in Weight 212 lb BMI 36.4 BP 124/80 Blood Pressure Location Lt brachial Position Sitting Pulse 70 Pulse Source Pulse Oximeter Pulse Oximetry (%) 98 Oxygen Delivery Method Room Air Intake Visit Reasons: Annual PE/OK per Dr. Damon before end of year Intake Note: Pt is here today for her PE Allergies Penicillins [PENICILLINS] Allergy (Intermediate, Verified 08/21/24 14:27) HIVES PEACHES Allergy (Unknown, Uncoded 08/21/24 14:27) HIVES Medication List - Last Reconciled 08/21/24 by Dania Bailey MD aspirin 81 mg PO DAILY famotidine (Pepcid AC) 20 mg PO BEDTIME lisinopril 5 mg PO DAILY metoprolol succinate ER 50 mg PO DAILY Tobacco use date assessed: 08/21/24 Dental Screening Dental Screen Date: 08/21/24 Did you have a dental visit in the last 12 months?: No Did you have a dental problem in the last 6 months where you did not have access to dental care?: No Was dental information given to patient?: Patient declined HPI Annual PE/OK per Dr. Damon before end of year HPI Details 58 year old Lady here today for physical exam. Has history of paroxysmal atrial fibrillation with a CHADS of 2. She was seen and evaluated by Cardiology with a 7 day Holter monitor and echocardiogram all of which came back within normal limits. Taken off Eliquis and kept on aspirin and beta- clifton. Patient has been feeling well with no complaints at present time of chest pain ,dizziness, shortness of breath, or lightheadedness. She has history of dyslipidemia currently diet controlled, plantar fascitis followed by Podiatry, and hypertension currently stable and controlled on lisinopril and metoprolol . Currently followed at [facility] for her routine Pap and pelvic exam and history of squamous cell CA of cervix status post chemo and radiation. Takes famotidine for heartburn symptoms. Has been trying to lose weight, has been following a healthy diet but admits to not getting any regular exercise. She would like to be placed on we go be or Ozempic but patient advised that she would not be able to get this approved as she has no history of diabetes and has not been on any structured regimen for diet and exercise. Complains of difficulty initiating sleep at night, frequent waking up. Patient states that her thoughts keeps her awake at night. Has tried [id number] sleep aids which has not helped PFSH Medical History (Updated 08/22/24 @ 08:35 by Dania Bailey MD) Plantar fasciitis, bilateral Obesity (BMI 30-39.9) Dyslipidemia (high LDL; low HDL) Pain in both feet Paresthesia of both feet PAF (paroxysmal atrial fibrillation) Atrial fibrillation with rapid ventricular response Insomnia History of renal calculi Opiate addiction History of meningitis Smoker unmotivated to quit Squamous cell carcinoma of cervix, stage 2 GERD (gastroesophageal reflux disease) Essential hypertension Surgical History No pertinent past surgical history Family History Mother Leukemia Maternal Grandmother Ovarian cancer Diabetes mellitus Sister Diabetes mellitus Social History Housing: Apartment Patient Tobacco Use Status: Current everyday Tobacco user Cigarettes Per Day: 10 e-Cigarette/Vaping Use: Never Used service: No Current occupational status: employed Cognitive needs: No Hearing needs: No Vision needs: Yes Questionnaire PHQ-9 Over the last 2 weeks, how often have you been bothered by any of the following problems? Depression Screening Interpretation: Negative Depression Screening Done: Yes Source: Developed by Drs. Tree Helms, Janet An, Lopez Pereira and colleagues, with an educational huyen from [employer]. Thrive Questionnaire Date Thrive assessed: 08/21/24 I am a: Patient What is your living situation today?: I have a steady place to live Within the past 12 months, did the food you bought not last and you didn't have the money to get more?: Never true Within the past 12 months, did you worry whether your food would run out before you got money to buy more?: Never true Do you have trouble paying for medicines?: No Do you have trouble getting transportation to medical appointments?: No Do you have trouble paying your heating and electricity bill?: No Do you have trouble taking care of your child, family member or friend?: No Do you have trouble with day-to-day activities such as bathing, preparing meals, shopping, managing finances, etc.?: No Are you currently unemployed and looking for a job?: No Are you interested in more education?: No Please select the resources that you would like help with: None Currently or been in a relationship where the following occur: No concerns reported THRIVE Score: 0 AUDIT C Alcohol Use Questionnaire (AUDIT-C) 1. How often do you have a drink containing alcohol?: Monthly or less 2. How many drinks containing alcohol do you have on a typical day when you are drinking?: 1 or 2 3. How often do you have six or more drinks on one occasion?: Never Total Score: 1 ANA-7 AMB Questionnaire ANA-7 Date ANA - 7 assessed: 05/15/24 Source: Developed by Drs. Tree Helms, Janet An, Lopez Pereira and colleagues, with an educational huyen from [employer]. Review of Systems Const Denies chills, Denies daytime sleepiness, Denies fatigue, Denies fever(s), Denies frequent falls, Denies night sweats, Denies snoring and Denies weakness ENT Denies dizziness Card Denies chest pain, Denies syncope, Denies rapid heart rate, Denies leg edema, Denies lightheadedness, Denies palpitations, Denies dyspnea and Denies dyspnea on exertion Resp Denies cough, Denies dyspnea, Denies dyspnea on exertion and Denies snoring GI Denies abdominal pain, Denies change in bowel habits, Denies change in stool character, Denies heartburn and Denies nausea Denies hematuria, Denies urinary frequency and Denies dysuria Musc Denies muscle weakness Skin/Breast Denies nail changes and Denies rash Neuro Denies Abnormal speech present, Denies dizziness, Denies syncope, Denies frequent falls and Denies weakness Psych Reports no additional complaints Endo Denies fatigue and Denies palpitations Vito/Lymph Reports no additional complaints Aller/Immun Reports no additional complaints Physical exam (Primary Care) Vital Signs: Last Vital Signs Pulse 70 08/21/24 13:45 BP 124/80 08/21/24 13:45 Pulse Ox 98 08/21/24 13:45 Oxygen Delivery Method Room Air 08/21/24 13:45 BMI result Body Mass Index 36.4 Tobacco/Smoking Status: Tobacco use Status Tobacco use date assessed 08/21/24 08/21/24 13:35 Patient Tobacco Use Status Current everyday Tobacco 08/21/24 13:32 e-Cigarette/Vaping Use Never Used 08/21/24 13:32 Depression Screening Interpretation: Negative Thrive Assessment: Date of Thrive Assessment Date Thrive assessed 08/21/24 08/21/24 14:04 Currently or been in a relationship where the following occur: No concerns reported Const General: no acute distress Orientation/consciousness: patient oriented x3 Limitations: no limitations HENMT Ears: hearing grossly normal bilaterally and external ears normal General nose exam: Normal external nose present and No nasal discharge present Mouth: Normal oral and palatal mucosa present, oropharynx normal and moist mucous membranes Eyes General: appearance normal, both eyes and all related structures Neck Neck: Yes full ROM, Yes no lymphadenopathy and Yes supple Chest Chest palpation & inspection: normal inspection of the chest Breast/axilla palpation: normal palpation of the breasts Resp Effort & Inspection: normal respiratory effort and able to speak in complete se ntences Auscultation: clear to auscultation bilaterally Cardio Rate: regular rate Rhythm: regular rhythm Heart sounds: S1 normal heart sound present and S2 normal heart sound present GI Inspection: Yes normal to inspection Palpation (GI): Soft to palpation, nontender and no masses Auscultation: normal bowel sounds Other: Goes to [facility] for her routine Pap and pelvic exam General: Yes no CVA tenderness Back/Spine/Pelvis Back: no CVA tenderness and No back tenderness Skin General skin exam: no rashes or lesions noted Neuro General: patient oriented x3, gait normal, moves all extremities, Normal light touch and pain sensation and no focal motor deficits Cognition (Neuro): normal cognition Speech: No Abnormal speech present Gait exam (Neuro): Normal gait present Motor exam (neuro): 5/5 motor strength present throughout Extrem General: Yes full ROM, Yes no joint enlargement, Yes no calf tenderness and Yes normal gait Psych Appearance: well kempt Mental Status: mental status grossly normal Speech and movement: Normal speech and movement present Affect: normal affect Attitude: cooperative Thought process: Normal thought process present Results Reviewed Results Reviewed: Laboratory Tests 05/21/24 06:18 Hgb 13.8 Hct 42.4 Name: Breonna Hargrove Age/Sex: 58/F : 1965 Unit#: [id number] Attend Dr: Dania Bailey MD Re05/21/24 Status: DEP REF Location: [facility] Disch: SPEC : [id number] [place]: 05/21/24 STATUS: COMP REQ : [id number] RECD: 05/21/24-[address]: Dania Bailey MD COMP: 05/21/24 ENTERED: 05/21/[address] [facility] [address]: ORDERED: Met Prof Fast, Vitamin D 25-OH, TSH Rflx Test Result Flag Reference Sodium 143 135-145 mmol/L Potassium 4.3 3.3-5.1 mmol/L CL 107 96-108 mmol/L CO2 30 H 22-29 mmol/L Gap 10 L 12-20 BUN 16 9-16 mg/dL Creat 0.89 0.5-1.4 mg/dL EGFR > 60 NOTE: For -[place] individuals, multiply the result by 1.210. Chronic Kidney Disease: Estimated GFR < 60 mL/min/1.73m2 Severe Kidney Disease: Estimated GFR < 15 mL/min/1.73m2 FBS 103 H 60-99 mg/dL A fasting glucose from 100-125 mg/dl is considered impaired (pre-diabetes). CA 9.6 8.4-10.2 mg/dL Vit D 25-OH Tot 30.4 L >30 ng/mL Health Based Reference Values* < 20 ng/mL Deficient 20-30 ng/mL Insufficient > 30 ng/mL Sufficient *Billy FRANCO. N Engl J Med. 2007;[id number]:266-280 Care must be taken in interpreting Vitamin D results from different laboratories and methodologies. Published data demonstrated that results from patients undergoing hemodialysis may show a negative bias when tested with various automated 25-OH vitamin D assays when compared to LC-MS/MS. When testing samples from patients whose predominant form of Vitamin D is Vitamin D2, such as patients receiving Vitamin D2 supplementation, results that are subtherapeutic should be confirmed with another method such as LC-MS/MS. TSH 2.93 0.32-4.0 uIU/mL Coding Level of Care Code Est Pt Prev Care 40-64y(36296) Diagnoses Annual visit for general adult medical examination with abnormal findings Z00.01 Essential hypertension I10 GERD (gastroesophageal reflux disease) K21.9 Squamous cell carcinoma of cervix, stage 2 C53.9 Smoker unmotivated to quit F17.200 Primary insomnia F51.01 Insomnia type: primary Encounter for counseling regarding advance directives Z71.89 Obesity (BMI 30-39.9) E66.9 Plantar fasciitis, bilateral M72.2 Assessment & Plan Assessment & Plan (1) Annual visit for general adult medical examination with abnormal findings: Code(s): Z00.01 - Encounter for general adult medical examination with abnormal findings Plan: Will check appropriate labs. Recommended dental visit every 6 months and regular eye exams, at least every 2 years. Take adequate calcium in diet and vitamin-D 3 at 2000 IU per cap once a day, in addition to weight-bearing exercises to help maintain good muscle tone and weight control. Instructed to do self-breast exam, and recommended to get yearly mammogram, patient states she gets it at [facility]. Does not want to get colonoscopy but willing to do Cologuard, test ordered. Has had 2 COVID vaccines but does not want to get the booster, declines flu vaccine, has had Tdap in 2016 (2) Essential hypertension: Code(s): I10 - Essential (primary) hypertension Category: Medical Plan: Blood pressure stable and controlled on lisinopril and metoprolol will continue on current dose (3) GERD (gastroesophageal reflux disease): Code(s): K21.9 - Gastro-esophageal reflux disease without esophagitis Category: Medical Plan: Continue famotidine avoid triggers for heartburn, do not lie down right away after eating (4) Squamous cell carcinoma of cervix, stage 2: Comment: ff-d by Dr Stinson at [facility] s/p chemo and radiation and [facility] Code(s): C53.9 - Malignant neoplasm of cervix uteri, unspecified Category: Medical Plan: Followed at OBGYN at [facility] (5) Smoker unmotivated to quit: Code(s): F17.200 - Nicotine dependence, unspecified, uncomplicated Category: Social Hx Plan: Patient strongly advised to stop smoking, as smoking damages blood vessels, degenerative of joints and spine, damage to lungs and heart., predisposes to developing certain cancers like lung, breast, bladder, colon. Recommended to try decreasing cigarette use by 1-2 cigarettes a day. Advised to monitor what triggers are for smoking so that this can be discussed on the next office visit. We can discuss different options to quit smoking when ready. (6) Insomnia: Code(s): G47.00 - Insomnia, unspecified Category: Medical Qualifiers: Insomnia type: primary Qualified Code(s): F51.01 - Primary insomnia Plan: Will try on trazodone 50 mg per tablet to take 1 tablet at bedtime. Increase to 1-1/2 or 75 mg at night if initial does not helping. Advised to do relaxation techniques before bedtime avoid staying on her phone or watching TV , take a warm bath (7) Encounter for counseling regarding advance directives: Code(s): Z71.89 - Other specified counseling Plan: Initiated the conversation about Advanced Directives. Advanced Directives help patients prepare for current and future decisions about their medical treatment and place of care. Discussed with patient that it is a process where a patients current condition and prognosis are reviewed, their wishes for information regarding their illness are elicited, and likely medical dilemmas are presented and options discussed. Healthcare proxy form completed. The form can be amended as needed, reviewed yearly and make changes as needed (8) Obesity (BMI 30-39.9): Code(s): E66.9 - Obesity, unspecified Category: Medical Plan: Will try on phentermine 15 mg per tablet to take 1 tablet 2 hours after breakfast. Combined this with adhering to a healthy diet, and getting regular exercise at least 15 minutes of cardio daily. Will see her back for follow-up in a month (9) Plantar fasciitis, bilateral: Code(s): M72.2 - Plantar fascial fibromatosis Category: Medical Plan: Followed by Podiatry Orders: Orders Lipid Panel 08/21/24 C53.9 - Malignant neoplasm of cervix uteri, unspecified, E78.5 - Hyperlipidemia, unspecified, F17.200 - Nicotine dependence, unspecified, uncomplicated, G47.00 - Insomnia, unspecified, I10 - Essential (primary) hypertension, K21.9 - Gastro-esophageal reflux disease without esophagitis, Z00.01 - Encounter for general adult medical examination with abnormal findings, Z71.89 - Other specified counseling Referrals Cologuard Test Z12.11 - Encounter for screening for malignant neoplasm of colon, Z12.12 - Encounter for screening for malignant neoplasm of rectum Medications: New trazodone 50 mg PO BEDTIME PRN 30 tabs 0RF sleep phentermine must administer 2 hours after breakfast 15 mg PO DAILY 30 caps 0RF
[2024-08-21 13:45] VITALS: BP 124/80; PULSE 70; O2SAT 98; BMI 36.4
== END 2024-08-21 14:50 | disposition home or self-care (01) ==
PROVIDERS: PCP Internal Medicine; Visit Provider Internal Medicine
DX: Z00.00 Encounter for general adult medical examination without abnormal findings (principal); C53.9 Malignant neoplasm of cervix uteri, unspecified; I10 Essential (primary) hypertension; K21.9 Gastro-esophageal reflux disease without esophagitis; F17.200 Nicotine dependence, unspecified, uncomplicated; F51.01 Primary insomnia; Z71.89 Other specified counseling; E66.9 Obesity, unspecified; M72.2 Plantar fascial fibromatosis

== ENCOUNTER → 2024-08-21 13:17 | Outpatient (BNVA) | payer BC, SELFPAY | PROVIDERS: PCP Internal Medicine; Visit Provider Internal Medicine ==

== ENCOUNTER 2024-09-28 06:01 | Outpatient (REF) | payer BC, SELFPAY ==
[2024-09-28 11:08] LABS: Cholesterol 160 mg/dL (<200); HDL Cholesterol 45 mg/dL (>40); LDL Cholesterol Calculated 98 mg/dL (<100); Triglycerides 85 mg/dL (<150)
== END 2024-09-28 06:02 | disposition home or self-care (01) ==
LOC: HO.HMGCLDS 06:01
PROVIDERS: PCP Internal Medicine; Visit Provider Internal Medicine
DX: Z00.01 Encounter for general adult medical examination with abnormal findings (principal); I10 Essential (primary) hypertension; K21.9 Gastro-esophageal reflux disease without esophagitis; C53.9 Malignant neoplasm of cervix uteri, unspecified; F17.200 Nicotine dependence, unspecified, uncomplicated; G47.00 Insomnia, unspecified; E78.5 Hyperlipidemia, unspecified; Z71.89 Other specified counseling
CPT/HCPCS: 36415; 80061

== ENCOUNTER 2024-10-19 11:13 | Outpatient (AMB) | payer BC, SELFPAY ==
--- NOTE | 2024-10-19 11:14 | A.OFFPC_ITS ---
Vital Signs 10/19/24 11:14 Height 5 ft 4 in Intake Visit Reasons: follow up/med questions Intake Note: patient is requesting ozempic for weight loss, experienced shaking with phentermine. Patient was advised we will need a weight check prior to submitting any prior auth to insurance if a weight medicaiton is sent. Allergies Penicillins [PENICILLINS] Allergy (Intermediate, Verified 10/19/24 11:27) HIVES phentermine Adverse Reaction (Mild, Verified 10/19/24 11:27) shaking PEACHES Allergy (Unknown, Uncoded 10/19/24 11:27) HIVES Medication List - Last Reconciled 10/19/24 by Dania Bailey MD aspirin 81 mg PO DAILY famotidine (Pepcid AC) 20 mg PO BEDTIME lisinopril 5 mg PO DAILY metoprolol succinate ER 50 mg PO DAILY Tobacco use date assessed: 10/19/24 Dental Screening Dental Screen Date: 10/19/24 Did you have a dental visit in the last 12 months?: Yes Did you have a dental problem in the last 6 months where you did not have access to dental care?: No Was dental information given to patient?: Patient has dentist HPI follow up/med questions HPI Details - The patient is a 58-year-old female wi th history of prediabetes, dyslipidemia, hypertension, presenting today via telehealth for follow-up regarding her obesity. Started on phentermine 15 mg taken once a day on last visit, but had to discontinue taking the medicine due to development of pal pitations accompanied by lightheadedness. - Current weight is 212 lbs, contributin g to a BMI of 36, and previous non- pharmacological interventions which included dietary consultation with search marketing specialist, and getting regular exercise have not been effective in losing weight [facility] Medical History (Updated 10/19/24 @ 11:43 by Dania Bailey MD) Impaired fasting glucose Plantar fasciitis, bilateral Obesity (BMI 30-39.9) Dyslipidemia (high LDL; low HDL) Pain in both feet Paresthesia of both feet PAF (paroxysmal atrial fibrillation) Atrial fibrillation with rapid ventricular response Insomnia History of renal calculi Opiate addiction History of meningitis Smoker unmotivated to quit Squamous cell carcinoma of cervix, stage 2 GERD (gastroesophageal reflux disease) Essential hypertension Surgical History No pertinent past surgical history Family History Mother Leukemia Maternal Grandmother Ovarian cancer Diabetes mellitus Sister Diabetes mellitus Social History Housing: Apartment Patient Tobacco Use Status: Current everyday Tobacco user Cigarettes Per Day: 10 e-Cigarette/Vaping Use: Never Used service: No Current occupational status: employed Cognitive needs: No Hearing needs: No Vision needs: Yes Questionnaire PHQ-9 Over the last 2 weeks, how often have you been bothered by any of the following problems? 1. Little interest or pleasure in doing things: not at all 2. Feeling down, depressed, or hopeless: not at all 3. Trouble falling or staying asleep, or sleeping too much: not at all 4. Feeling tired or having little energy: not at all 5. Poor appetite or overeating: not at all 6. Feeling bad about yourself - or that you are a failure or have let yourself or your family down: not at all 7. Trouble concentrating on things, such as reading the newspaper or watching television: not at all 8. Moving or speaking so slowly that other people could have noticed. Or the opposite - being so fidgety or restless that you have been moving around a lot more than usual: not at all 9. Thoughts that you would be better off or of hurting yourself in some way: not at all Total score: 0 Depression Screening Interpretation: Negative Depression Screening Done: Yes 59461 - PHQ-9 Billing: Yes Source: Developed by Drs. Tree Helms, Janet An, Lopez Pereira and colleagues, with an educational huyen from [employer]. Thrive Questionnaire Date Thrive assessed: 10/19/24 I am a: Patient What is your living situation today?: I have a steady place to live Within the past 12 months, did the food you bought not last and you didn't have the money to get more?: Never true Within the past 12 months, did you worry whether your food would run out before you got money to buy more?: Never true Do you have trouble paying for medicines?: No Do you have trouble getting transportation to medical appointments?: No Do you have trouble paying your heating and electricity bill?: No Do you have trouble taking care of your child, family member or friend?: No Do you have trouble with day-to-day activities such as bathing, preparing meals, shopping, managing finances, etc.?: No Are you currently unemployed and looking for a job?: No Are you interested in more education?: No Please select the resources that you would like help with: None Currently or been in a relationship where the following occur: No concerns reported THRIVE Score: 0 AUDIT C Alcohol Use Questionnaire (AUDIT-C) 1. How often do you have a drink containing alcohol?: Monthly or less 2. How many drinks containing alcohol do you have on a typical day when you are drinking?: 1 or 2 3. How often do you have six or more drinks on one occasion?: Never Total Score: 1 Score Reviewed/Action Taken: Yes ANA-7 AMB Questionnaire ANA-7 Date ANA - 7 assessed: 10/19/24 Feeling nervous, anxious, or on edge: 0 = Not at all Not being able to stop or control worryin = Not at all Worrying too much about different things: 0 = Not at all Trouble relaxin = Not at all Being so restless that it is hard to sit still: 0 = Not at all Becoming easily annoyed or irritable: 0 = Not at all Feeling afraid as if something awful might happen: 0 = Not at all Total ANA-7 score (0-4 normal; 5-9 mild; 10-14 moderate; 15-21 severe): 0 Source: Developed by Drs. Tree Helms, Janet An, Lopez Pereira and colleagues, with an educational huyen from [employer]. ANA-7 Assessment Billing ANA-7 Assessment Tool: ANA-7 Assessment 73144 Review of Systems Const Reports no additional complaints and Denies weight loss ENT Reports no additional complaints Card Denies chest pain, Denies edema and Denies irregular heart rhythm Resp Reports no additional complaints GI Reports no additional complaints Reports no additional complaints Musc Reports arthralgias (Recurrent joint pain) and Reports stiffness Neuro Reports no additional complaints Psych Reports no additional complaints Endo Reports no additional complaints Vito/Lymph Reports no additional complaints Physical exam (Primary Care) Tobacco/Smoking Status: Tobacco use Status Tobacco use date assessed 10/19/24 10/19/24 11:17 Patient Tobacco Use Status Current everyday Tobacco 10/19/24 11:17 e-Cigarette/Vaping Use Never Used 10/19/24 11:17 PHQ-9: PHQ-9 Score PHQ-9: Total score 0 10/19/24 11:46 Depression Screening Interpretation: Negative Thrive Assessment: Date of Thrive Assessment Date Thrive assessed 10/19/24 10/19/24 11:17 Currently or been in a relationship where the following occur: No concerns reported Telehealth Telehealth Telehealth Platform: [employer] Location of provider rendering services: practice address Location of patient: address on file Patient Identification confirmed using: Name, : Yes Telehealth method: video Patient verbally consented to treatment: Yes Patient verbally consented to billing insurance company: Yes Patient informed of any privacy concerns related to visit: Yes Results Reviewed Results Reviewed: Laboratory Tests 07/08/22 09/28/24 10:20 06:05 Triglycerides 128 85 Cholesterol 239 D 160 LDL Cholesterol, Calc 157 98 HDL Cholesterol 57 45 Coding Level of Care Code Tele Est Pt Level 3 (00046) Diagnoses Obesity (BMI 30-39.9) E66.9 Essential hypertension I10 Dyslipidemia (high LDL; low HDL) E78.5 Impaired fasting glucose R73.01 Additional Codes ANA-7 Assessment Billing - ANA-7 Assessment Tool: ANA-7 Assessment 86655 ([id number]) PHQ-9 - 68748 - PHQ-9 Billing: Yes ([id number]) Assessment & Plan Assessment & Plan (1) Obesity (BMI 30-39.9): Code(s): E66.9 - Obesity, unspecified Category: Medical (2) Essential hypertension: Code(s): I10 - Essential (primary) hypertension Category: Medical (3) Dyslipidemia (high LDL; low HDL): Code(s): E78.5 - Hyperlipidemia, unspecified Category: Medical (4) Impaired fasting glucose: Code(s): R73.01 - Impaired fasting glucose Category: Medical Plan She is currently of phentermine due to side effects developed from taking the medication. Prescription sent for Ozempic at 0.25 mg injected once a week subcutaneously to help with weight loss, while potentially improving glycemic control given the patient's prediabetic status. follow-up weight assessment four weeks into therapy. Continued lifestyle modification efforts are encouraged. It is noted that there has been improvement in her lipid levels with diet and exercise but has not been able to lose weight however. Blood pressure stable controlled on current dose of lisinopril 5 mg daily and metoprolol succinate ER 50 mg once a day. She was advised to reach out to us if there is no update regarding medication approval within the stipulated time frame. Patient was informed and verbally consented to the use of an ambient scribe for clinic note documentation during this visit. Medications: New Ozempic (semaglutide) for 4 weeks 0.25 mg (0.368 mL) subcut QWEEK 3 mL 0RF NS E66.9 - Obesity, unspecified, E78.5 - Hyperlipidemia, unspecified, I10 - Essential (primary) hypertension, R73.01 - Impaired fasting glucose
--- OUTSIDE RECORDS SUMMARY | 2024-10-19 12:07 | XMS_ITS | Clinical Summary ---
Author Organization [facility], Address [address] [place] [address] Phone Care Team Providers Care Community Case Manager Name Role Phone Alber Bailey MD Primary Care Provider [phone] Allergies Active Allergy Reactions Criticality Noted Date Comments Penicillins Rash Low 08/16/2019 Medications lisinopril (PRINIVIL,ZESTRI L) 5 MG tablet Take 5 mg by mouth daily 07/07/2019 Active methadone (DOLOPHINE) 10 MG/5ML solution Take 3 mg by mouth Active raNITIdine (ZANTAC) 150 MG tablet Take 150 mg by mouth 2 (two) times a day Active Hospital, Clinic, or Other Facility Administered Medication Ordered Dose Route Frequency Start Date End Date Status clindamycin (CLEOCIN) injection 600 mgIndications:Antibiotic prophylaxis recommended 600 mg IM Once 08/17/2019 A ctive midazolam (VERSED) injection 2 mgIndications:Cervical cancer (HCC) 2 mg IV As needed 08/17/2019 Active fentaNYL (SUBLIMAZE) injection 50 mcgIndications:Cervical cancer (HCC) 50 mcg IV As needed 08/17/2019 Active sodium chloride 0.9 % infusionIndications:Cervical cancer (HCC) 40 mL/hr IV Continuous 08/17/2019 Active Active Problems Problem Noted Date Diagnosed Date Fatty liver 08/16/2019 Hypertension 08/16/2019 Cervical cancer 08/16/2019 Obesity 08/16/2019 Idiopathic peripheral neuropathy 08/16/2019 Social History Tobacco Use Types Packs/Day Years Used Date Smoking Tobacco: Every Day Cigarettes 0.5 41.1 Started: 1983 Smokeless Tobacco: Never Tobacco Cessation:Counseling Given: Yes Alcohol Use Standard Drinks/Week Comments Yes 0 (1 standard drink = 0.6 oz pur e alcohol) socially on occasion Comments Unknown Sex and Gender Information Value Date Recorded Sex Assigned at Not on file Legal Sex Female 10:22 AM EST Gender Identity Not on file Sexual Orientation Not on file Last Filed Vital Signs Vital Sign Reading Time Taken Comments Blood Pressure 124/83 03/21/2020 8:26 AM EDT Pulse 81 03/21/2020 8:26 AM EDT Temperature 36.3 ??C (97.3 ??F) 03/21/2020 8:26 AM ED T Respiratory Rate 17 03/21/2020 8:26 AM EDT Oxygen Saturation 100% 03/21/2020 8:26 AM EDT Inhaled Oxygen Concentration - - Weight 97.5 kg (215 lb) 03/21/2020 8:26 AM EDT Height 162.6 cm (5' 4 ) 03/21/2020 8:26 AM EDT Body Mass Index 36.9 03/21/2020 8:26 AM EDT Plan of Treatment Health Maintenance Due Date Last Done Comments Breast Cancer Screening 1965 Pneumococcal Vaccine: Pediat rics (0 to 5 Years) and At-Risk Patients (6 to 64 Years) (1 of 2 - PCV) 11/18/1973 Hepatitis B Vaccine (1 of 3 - 19+ 3-dose series) 11/18 Colorectal Cancer Screening: Annual FOBT 11/18/2016 Colorectal Cancer Screening: Colonoscopy 11/18/2016 Colorectal Cancer Screening: Sigmoidoscopy 11/18/2016 Influenza Vaccine (#1) 2024 Insurance [facility] Member Subscriber Plan / Payer (Ef fective 2018-Present) Name:Breonna Hargroev Relation to Subscriber:Self Name:Breonna Hargrove Payer ID:[id number] (NAIC) Type:Not on file Address: [address] [place] [id number] MEDICAID [place] Care Teams Community Case Manager Relationship Specialty Start Date End Date Alber Bailey MD [address] [place] [phone] PCP - General Internal Medicine 08/16/19
--- OUTSIDE RECORDS SUMMARY | 2024-10-19 12:08 | XMS_ITS ---
[facility] Organization [facility] Address [address] [place] [address] Care Team Providers Care Rubber Factory Worker Name Role Phone Leo MALAGON, Dania Hancock Primary Care Provider Un available Macey Farah Unavailable [phone] Allergies Allergen (clinical drug ingredient) Drug/Non Drug Allergy documented on EMR Reaction Allergy Type Onset Date Status [place] Flavor hives Drug Allergy Acti ve Penicillin hives Drug Allergy Active REASON FOR VISIT Pcp-05/29, Heel pain Medications Medication SIG (Take, Route, Frequency, Duration) Notes Start Date End Date Status Medrol kaela 4mg as directed orally a s directed for 6 days 09/06/2024 Active Lisinopril 5 MG 2 tablets Orally Onc e a day for 30 day(s) 07/23/2024 Active Metoprolol Succinate 50 MG 1 capsule Ora lly Once a day Active Pepcid 20 MG 1 tablet at bedtime as needed Orally Once a day Active Social History Tobacco [...] User Modera te cigarette smoker (10-19 cigs/day) Tobacco use other than smoking: Question Answer Notes Are you an other tobacco user? No Vital Signs Height 5ft4in in 09/06/2024 Weight 210 lbs 09/06/2024 BMI 36.04 kg/m2 09/06/2024 Blood pressure systolic 126 mm Hg 09/06/19 25 Blood pressure diastolic 81 mm Hg 025 Encounters Encounter Location Date Provider Diagnosis [facility] [address] [place] [address] 09/06/2024 Macey Jensenaker Pain in left foot M79.672 ; Plantar fasciitis of left foot M72.2 ; Calcaneal spur, left foot M77.32 ; Interstitial myositis of left foot M60.172 and Bursitis of left foot M77.52 Assessments Encounter Date Diagnosis (ICD Code) Assessment Notes Treatment Notes Treatment Clinical Notes Section Notes 09/06/2024 Pain in left foot (ICD-10 - M79.672) 09/06/2024 Plantar fasciitis of left foot (ICD-10 - M72.2) Patient Educated with: HEEL CORD STRETCHES.pdf (HEEL CORD STRETCHES.pdf) Patient Educated with: RICE THERAPY.pdf (RICE THERAPY.pdf) 09/06/2024 Calcaneal spur, left foot (ICD-10 - M77.32) 09/06/2024 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) 09/06/2024 Bursitis of left foot (ICD-10 - M77.52) Plan Of Treatment Medication Medication Name Sig Start Date Stop Date Notes Medrol kaela 4mg as directed orally as directed for 6 days 0 09/06/2024 Treatment Notes Assessment Notes Plantar fasciitis of left foot Patient E ducated with: HEEL CORD STRETCHES.pdf (HEEL CORD STRETCHES.pdf) Patient Educated with: RICE THERAPY.pdf (RICE THERAPY.pdf) Next Appt Details Follow Up: 3-4 Weeks, Reason : Progress Notes * Chencho HARGROVEB: 8 (58 yo F)Acc No.[id number]:09/06/2024 Progress Notes Patient:?Jaky HARGROVEnda Provider:?Macey Farah DPM :1965???Age:58 Y???Sex:Female D ate:09/06/2024 Address:[address] [place], [place] [id number] Pcp:Sharon Baca Subjective: * Chief Complaints: * ???Pcp-09/24Heel pain * HPI: ???Heel pain:?Location:?Proximal plantar aspect of Heel, LEFT.?Duration:?8 months.?Course:?worse.?Aggravated:?standing, walking, walking first thing in the morning/after rest.?Treatments:?rest/alter normal daily activity , OTC inserts, NSAIDs, licocaine patches, stretching exercises, cortisone injection last visit- only gave relief for a few days, night splint.? * ROS:?General/Constitutional:?Nausea?denies.?Vomiting?denies.?Hunger Thirst?denies.?Loss appetite?denies.?Chills?denies.?Fatigue?denies.?Fever?denies.?Night Sweats?denies.?Unexplained weight loss?denies.?Unexplained weight gain?denies.?HEENTM:?Dentures?denies.?Dizziness?denies.?Glasses/contacts?admits.?Retinopathy?de nies.?Blurred/double vision?denies.?TMJ?denies.?Discharge/drainage?denies.?Implants?denies.?Sore throat?denies.?Dental implants?denies.?Hard of hearing ?denies.?Difficulty chewing/swallowing/speaking?denies.?Nose bleeds?denies.?Sore mouth?denies.?Respiratory:?On Oxygen?denies.?Pneumonia/pleurisy?denies.?Bronchitis?denies.?Emphysema?denies.?C oughing?denies.?Cough blood?denies.?Shortness of breath?denies.?Wheezing?denies.?Cardiovascular:?Pacemaker?denies.?MVP?denies.?WPW?denies.?CHF?denies.?Heart attack?denies.?Septal defect?denies.?Rapid beat?denies.?Chest pain ?denies.?Atrial Fib.?denies.?Murmur/Palpitations?denies.?Gastrointestinal:?Hemorrhoids?denies.?Stomach/Abdominal pain?denies.?Dark blood stool?denies.?Irritable bowel ?denies.?Constipation?denies.?Diarrhea?denies.?Hematology:?Swelling?denies.?Clots?denies.?Varicose Veins?denies.?Bruising?denies.?Bleeding problem?denies.?Genitourinary:?Blood urine?denies.?Frequent/Painfu/urination/bladder control?denies.?Kidney stones?admits.?Infection (UTI)?denies.?Nephropathy?admits.?sex trans dis (STD)?denies.?Prostate?denies.?Musculoskeletal:?Hammertoes?denies.?Bunions?denies.?Back Pain?denies.?Muscle Cramps/ Resting?denies.?Muscle cramps / walking?denies.?Generalized aches and pains?denies.?Weakness?denies.?Integ.:?Baiely?denies.?Scars?denies.?Corns/calluses?denies.?Ingrown nails?admits.?Painful nails?admits.?Open Sores?denies.?Rashes?denies.?Neurologic:?Difficulty sleeping?admits.?Brain disorder?denies.?Numbness?denies.?Balance trouble?denies.?Confusion?denies.?Fainting/blackouts?denies.?Tingling?denies.?Tr emors?denies.? [...] than smoking?Are you an other tobacco user??No * Medications:?TakingPepcid 20 MG Tablet 1 tablet [...] Allergies:?Penicillin: hives - AllergyPeach Flavor: hives - Allergyyes[Allergies Verified] Objective: * Vitals:?Ht: 5ft4in, Wt:210, BMI:36.04, Shoe size: 8.5, BP:126/81mm Hg, Ht-cm: 162.56 cm, Wt-k.25 kg. * Examination: [...] no masses. 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 Plan: * Treatment: 2.?Pain in left foot? Start Medrol kaela Tablet Therapy Pack, 4mg, as directed, orally, as directed, 6 days, 1 kaela, Refills 0.?? * Procedure Codes:? * Preventive Medicine:? ??Counseling:?Discussion:?-14: Office or other outpatient visit for the evaluation and management of an established patient, which required a medically appropriate history [...] have encouraged the patient to call the office.?Heel pain:?FASCIITIS: I explained to the patient the [...] Interfil injection therapy, as well as surgical [place]/Endoscopic Fasciitomy surgical procedures if needed. Recommendations were [...] the various treatment options were dispensed and reviewed. Medrol dose pack prescribed for patient. Educated on use. Emphasized the importance of continuing stretching regimen, OTC orthotics. I do recommend physical therapy for patient as she still has significant plantar fasciitis and gastrocnemius equinus- patient refused as she does not have the time to participate..?Orthotics:?I explained to the patient the benefits of [...] patient verbally confirmed to understanding the information discussed.?Stretching Exercises:?Stretching and deep tissue massage exercises for the patients injury/diagnosis were discussed and demonstrated, handouts were dispensed.? * Follow Up:?3-4 Weeks * Images: * Sign off status: Completed true * Provider:?Macey Farah DPM Date:?0 09/06/2024 Generated for Agnieszka degroot/Piedad/Fiordaliza on:?10/19/2024 12:07 PM EST History and Physical Notes * HPI (History of Present Illness) Category Sub-Category Detail Notes Category Not es Heel pain Duration: 8 months Location: Proximal plantar asp ect of Heel, LEFT Aggravated: standing, walking, w alking first thing in the morning/after rest Course: worse Treatments: rest/alter normal da caryn activity , OTC inserts, NSAIDs, licocaine patches, stretching exercises, cortisone injection last visit- only gave relief for a few days, night splint Examination Category Sub-Category Detail Notes Category Not [...] person, place, and t suly Vascular DP PULSES (B): 3/4, B/L PT PULSES (B): 3/4, B/L CAPILLARY FILL TIME: immediate, all digi ts, B/L TEMPERTURE GRADIENT (C): warm to cool, p roximal to distal, B/L TROPHIC CONDITION-TEXTURE/ELASTICITY/TURGOR/HAIR GROWTH (B): normal, B/L EDEMA (C): absent, B/L PIGMENTATION: normal, B/L Nails NAILS [...]
--- OUTSIDE RECORDS SUMMARY | 2024-10-19 12:08 | XMS_ITS | Patient Health Record ---
[facility] Address [address] [place] [address] Care Team Providers Care Business Intelligence Reporting Analyst Name Role Phone Leo MALAGON, Dania Hancock Primary Care Provider Un available Macey Farah Unavailable [phone] Allergies Allergen (clinical drug ingredient) Drug/Non Drug Allergy documented on EMR Reaction Allergy Type Onset Date Status [place] Flavor hives Drug Allergy Acti ve Penicillin [...] W/U Status Risk Notes Problem Plantar fasciitis (923981252) Plantar fasciitis (M72.2) Active confirmed Resistant to previous conservative treatment Problem Plantar fasciitis of left foot (5297081157699 9101) Plantar fasciitis of left foot (M72.2) Active confirmed Problem Interstitial myositis (09089206) 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) Active confirmed Problem 890534929 Gastrocnemius equinus of left lower extremity (M62.462) Active confirmed Vital Signs Blood pressure diastolic 81 mm Hg 09/06/2024 Height 5ft4in in 09/06/2024 Blood pressure systolic 126 mm Hg 09/06/2024 Weight 210 lbs 09/06/2024 BMI 36.04 kg/m2 09/06/2024 Encounters Encounter Location Date Provider Diagnosis [address] [address] 07/23/2024 Macey Jensenaker Pain in left foot M79.672 ; Plantar fasciitis of left foot M72.2 ; Calcaneal spur, left foot M77.32 ; Interstitial myositis of left foot M60.172 ; Bursitis of left foot M77.52 ; Pain in right toe(s) M79.674 ; Onychomycosis B35.1 ; Pain in left toe(s) M79.675 and Gastrocnemius equinus of left lower extremity M62.[address] [address] 09/06/2024 Macey Farah Pain in left foot M79.672 [...] Educated with: RICE THERAPY.pdf (RICE THERAPY.pdf) 09/06/2024 Pain in left foot (ICD-10 - M79.672) 09/06/2024 Plantar fasciitis of left foot (ICD-10 - M72.2) Patient Educated with: HEEL CORD STRETCHES.pdf (HEEL CORD STRETCHES.pdf) Patient Educated with: RICE THERAPY.pdf (RICE THERAPY.pdf) 09/06/2024 Calcaneal spur, left foot (ICD-10 - M77.32) 07/23/2024 Calcaneal spur, left foot (ICD-10 - M77.32) 07/23/2024 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) 09/06/2024 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) 09/06/2024 Bursitis of left foot (ICD-10 - M77.52) 07/23/2024 Bursitis of left foot (ICD-10 - M77.52) 07/23/2024 Pain in right toe(s) (ICD-10 - M79.674) 07/23/2024 Onychomycosis (ICD-10 - B35.1) 07/23/2024 Pain in left toe(s) (ICD-10 - M79.675) 07/23/2024 Gastrocnemius equinus of left lower extremity (ICD-10 - M62.462) 07/23/2024 Other Patient Educated with: RICE THERAPY.pdf (RICE THERAPY.pdf) Patient Educated with: INJECTIONTHERA PY.pdf (INJECTIONTHER APY.pdf) Plan Of Treatment No Information Insurance Providers Payer Name Payer Address Payer Phone Subscriber Number Group Number Insured Name Patient Relationship to Insured Coverage Start Date Coverage End Date Chidi Moleler [address] [place] [address] [phone] [id number] Breonna Hargrove Self - patient is the insured Medical (General) History Medical History History ICD Code Anemia Cancer High Blood Pressure Chicken pox
--- OUTSIDE RECORDS SUMMARY | 2024-10-19 12:08 | XMS_ITS ---
Author Organization [facility] Address [address] [place] [address] Care Team Providers Care Oil Well Drilling Manager Name Role Phone Leo MALAGON, Dania Hancock Primary Care Provider Un available Macey Farah Unavailable [phone] Allergies Allergen (clinical drug ingredient) Drug/Non Drug Allergy documented on EMR Reaction Allergy Type Onset Date Status [place] Flavor hives Drug Allergy Acti ve Penicillin [...] Notes Problem Plantar fasciitis of left foot (9609004434789 9101) Plantar fasciitis of left foot (M72.2) Active confirmed Problem Interstitial myositis (72536342) 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) Active confirmed Problem Plantar fasciitis (733114406) Plantar fasciitis (M72.2) Active confirmed Resistant to previous conservative treatment Problem 588452878 Gastrocnemius equinus of left lower extremity (M62.462) Active confirmed Vital Signs Height 5ft4in in 07/23/2024 Weight 210 lbs 07/23/2024 BMI 36.04 kg/m2 07/23/2024 Encounters Encounter Location Date Provider Diagnosis [facility] [address] [place] [address] 07/23/2024 Macey Farah Pain in left foot [...] Appt Details Follow Up: 6 Weeks, Reason: Procedure Notes * Category Sub-Category Detail Notes Injection Tendon Sheath or Fascia 95248, J 0702 Injection - Plantar Fascia w/ mixture of [...] 0-1) out of 10 Progress Notes * Sedrick HARGROVEaDOB: 8 (58 yo F)Acc No.[id number]:07/23/2024 Progress Notes Patient:?Jaky HARGROVEnda Provider:?Macey Farah DPM :1965???Age:58 Y???Sex:Female D ate:07/23/2024 Address:[address] [place] [address] Pcp:Sharon Baca Subjective: * Chief Complaints: * ???PCP: 05/2024Heel [...] yes. ?Exercise: no. ?Marital status: single. 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 * Medications:?TakingPepcid 20 MG Tablet 1 tablet [...] with: INJECTIONTHERAPY.pdf (INJECTIONTHERAPY.pdf)?? * Procedures:?Injection:?Tendon Sheath or Fascia?31957, J0702 Injection - Plantar Fascia w/ mixture [...] ( 0-1) out of 10.? * Procedure Codes:?43141 INJ T ENDON SHEATH/LIGAMENT, Modifiers: XS J0702 [...] of topical antifungal and appropriate application technique. Vicks vaporub was also discussed with patient..?Heel pain:?FASCIITIS: [...] Interfil injection therapy, as well as surgical [place]/Endoscopic Fasciitomy surgical procedures if needed. Recommendations were [...] Provider:?Macey Farah DPM Date:?09/22/2023 Generated for Agnieszka degroot/Piedad/Fiordaliza on:?10/19/2024 12:07 PM [...] and t suly Vascular DP PULSES (B): 34, B/L PT PULSES (B): 3/4, B/L CAPILLARY [...]
== END 2024-10-19 12:11 | disposition home or self-care (01) ==
LOC: HO.HMCC 11:13
PROVIDERS: PCP Internal Medicine; Visit Provider Internal Medicine
DX: I10 Essential (primary) hypertension (principal); E66.9 Obesity, unspecified; E78.5 Hyperlipidemia, unspecified; R73.01 Impaired fasting glucose

== ENCOUNTER → 2024-10-19 11:13 | Outpatient (BNVA) | payer BC, SELFPAY | PROVIDERS: PCP Internal Medicine; Visit Provider Internal Medicine | DX: E66.9 Obesity, unspecified (principal); Z68.36 Body mass index [BMI] 36.0-36.9, adult; I10 Essential (primary) hypertension; E78.5 Hyperlipidemia, unspecified; R73.01 Impaired fasting glucose | CPT/HCPCS: 96127 ==

== ENCOUNTER 2024-12-19 09:34 | Outpatient (AMB) | payer BC, SELFPAY ==
--- OUTSIDE RECORDS SUMMARY | 2024-12-19 10:37 | XMS_ITS | Patient Health Record ---
Author [facility] Address [address] [place] [address] Care Team Providers Care Slash Trimmer Name Role Phone Leo MALAGON, Dania Hancock Primary Care Provider Un available Macey Farah Unavailable [phone] Allergies Allergen (clinical drug ingredient) Drug/Non Drug Allergy documented on EMR Reaction Allergy Type Onset Date Status [place] Flavor hives Drug Allergy Acti ve Penicillin [...] W/U Status Risk Notes Problem Plantar fasciitis (396558175) Plantar fasciitis (M72.2) Active confirmed Resistant to previous conservative treatment Problem Plantar fasciitis of left foot (9159639965914 9101) Plantar fasciitis of left foot (M72.2) Active confirmed Problem Interstitial myositis (73922960) 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) Active confirmed Problem 121085480 Gastrocnemius equinus of left lower extremity (M62.462) Active confirmed Vital Signs Blood pressure diastolic 81 mm Hg 09/06/2024 Height 5ft4in in 09/06/2024 Blood pressure systolic 126 mm Hg 09/06/2024 Weight 210 lbs 09/06/2024 BMI 36.04 kg/m2 09/06/2024 Encounters Encounter Location Date Provider Diagnosis [address] [address] 07/23/2024 Macey Jensenaker Pain in left foot M79.672 ; Plantar fasciitis of left foot M72.2 ; Calcaneal spur, left foot M77.32 ; Interstitial myositis of left foot M60.172 ; Bursitis of left foot M77.52 ; Pain in right toe(s) M79.674 ; Onychomycosis B35.1 ; Pain in left toe(s) M79.675 and Gastrocnemius equinus of left lower extremity M62.[address] [address] 09/06/2024 Macey Farah Pain in left foot [...] Coverage Start Date Coverage End Date Chidi Moeller [address] [place] [address] [phone] [id number] Breonna Hargrove Self - patient is the insured Medical (General) History Medical History History ICD Code Anemia Cancer High Blood Pressure Chicken pox
--- OUTSIDE RECORDS SUMMARY | 2024-12-19 10:37 | XMS_ITS ---
Author Organization [facility] Address [address] [place] [address] Care Team Providers Care Science Manager Name Role Phone Leo MALAGON, Dania Hancock Primary Care Provider Un available Macey Farah Unavailable [phone] Allergies Allergen (clinical drug ingredient) Drug/Non Drug Allergy documented on EMR Reaction Allergy Type Onset Date Status [place] Flavor hives Drug Allergy Acti ve Penicillin [...] Notes Problem Plantar fasciitis of left foot (0486184276619 9101) Plantar fasciitis of left foot (M72.2) Active confirmed Problem Interstitial myositis (04517311) 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) Active confirmed Problem Plantar fasciitis (378236103) Plantar fasciitis (M72.2) Active confirmed Resistant to previous conservative treatment Problem 851602844 Gastrocnemius equinus of left lower extremity (M62.462) Active confirmed Vital Signs Height 5ft4in in 07/23/2024 Weight 210 lbs 07/23/2024 BMI 36.04 kg/m2 07/23/2024 Encounters Encounter Location Date Provider Diagnosis [facility] [address] [place] [address] 07/23/2024 Macey Farah Pain in left foot [...] Detail Notes Injection Tendon Sheath or Fascia 84704, J 0702 Injection - Plantar Fascia w/ [...] * Sedrick HARGROVEaDOB: [birth year] (58 yo F)Acc No.[id number]:07/23/2024 Progress Notes Patient:?Jaky HARGROVEnda Provider:?Macey Farah DPM :1965???Age:58 Y???Sex:Female D ate:07/23/2024 Address:[address] [place] [address] Pcp:Sharon Baca Subjective: * Chief Complaints: * [...] yes. ?Exercise: no. ?Marital status: single. 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 * Medications:?TakingPepcid 20 MG Tablet 1 tablet [...] with: INJECTIONTHERAPY.pdf (INJECTIONTHERAPY.pdf)?? * Procedures:?Injection:?Tendon Sheath or Fascia?85213, J0702 Injection - Plantar Fascia w/ mixture [...] ( 0-1) out of 10.? * Procedure Codes:?57662 INJ T ENDON SHEATH/LIGAMENT, Modifiers: XS J0702 [...] Interfil injection therapy, as well as surgical [place]/Endoscopic Fasciitomy surgical procedures if needed. Recommendations were [...] Farah DPM Date:?09/22/2023 Generated for Agnieszka degroot/Piedad/Michelleitting on:?12/19/2024 10:37 AM EDT History and Physical Notes * HPI (History [...] Decreased Ankle joint dorsiflexion ROM, knee extended FOOTWEAR EVALUATION: fair condition, OT were inspected and noted to [...] and t suly Vascular DP PULSES (B): 3, B/L PT PULSES (B): 3/4, B/L CAPILLARY [...]
--- OUTSIDE RECORDS SUMMARY | 2024-12-19 10:37 | XMS_ITS ---
Author [facility] Address [address] [place] [address] Care Team Providers Care Fly Winder Name Role Phone Leo MALAGON, Dania Hancock Primary Care Provider Un available Macey Farah Unavailable [phone] Allergies Allergen (clinical drug ingredient) Drug/Non Drug Allergy documented on EMR Reaction Allergy Type Onset Date Status [place] Flavor hives Drug Allergy Acti ve Penicillin [...] 025 Encounters Encounter Location Date Provider Diagnosis [facility] [place] [address] [place] [address] 09/06/2024 Macey Jensenaker Pain in left foot [...] * Chencho HARGROVEB: 8 (58 yo F)Acc No.[id number]:09/06/2024 Progress Notes Patient:?Jaky HARGROVEnda Provider:?Macey Farah DPM :1965???Age:58 Y???Sex:Female D ate:09/06/2024 Address:[address] [place], [place] [address] Pcp:Sharon Baca Subjective: * Chief Complaints: * [...] Interfil injection therapy, as well as surgical [place]/Endoscopic Fasciitomy surgical procedures if needed. Recommendations were [...] Farah DPM Date:?0 09/06/2024 Generated for Agnieszka degroot/Piedad/Michelleitting on:?12/19/2024 10:37 AM [...]
--- OUTSIDE RECORDS SUMMARY | 2024-12-19 10:37 | XMS_ITS | Clinical Summary ---
Author Organization [facility], Address [address] [place] [address] Phone Care Team Providers Care Outpatient Admitting Clerk Name Role Phone Alber Bailey MD Primary Care Provider [phone] Allergies Active Allergy Reactions Criticality Noted Date [...] Date Smoking Tobacco: Every Day Cigarettes 0.5 41.3 Started: 1981 Smokeless Tobacco: Never Tobacco Cessation:Counseling [...] Last Done Comments Breast Cancer Screening 1965 Hepatitis B Vaccine (1 of 3 - 19+ 3-dose series) 11/18 Pneumococcal Vaccine: 50+ Years (1 of 2 - PCV) 987 Colorectal Cancer Screening: Annual FOBT 11/18/2016 Colorectal Cancer Screening: Colonoscopy 11/18/2016 Colorectal Cancer Screening: Sigmoidoscopy 11/18/2016 Influenza Vaccine (Season Ended) 2025 Insurance [facility] Member Subscriber Plan / Payer (Ef fective 2018-Present) Name:Breonna Hargrove Relation to Subscriber:Self Name:Breonna Hargrove Payer ID:[id number] (NAIC) Type:Not on file Address: [facility] [id number] [place] [id number] Medicaid [place] Care Teams Outpatient Admitting Clerk Relationship Specialty Start Date End Date Alber Bailey MD [address] [place] [address] PCP - General Internal Medicine 08/16/19
--- NOTE | 2024-12-19 12:36 | MHC.OFFVISWM ---
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 *SEE COMMENTS*: Details: Start time: 12.30pm, End time: 1.15pm I spent 40 minutes speaking with the patient on the phone plus an additional 5 minutes reviewing and updating records for a total of 45 minutes HPI Comments Details: Previous weight loss efforts: DOUGLAS, Dayan Treviño, Phentermine Wakes up: 4.45am, Sleeps: 11.30am Breakfast: skips Lunch: skips most days Dinner: 8pm (hamburgers, sliders) Snacks: twice before dinner (chips or cookies) Exercise: none Beverages: Coffee: none, Green tea: 12 cups/day (calories), soda: none, juice: none, ETOH: none PFSH Medical History (Updated 12/19/24 @ 12:40 by Alonso Durán MD) PAF (paroxysmal atrial fibrillation) Impaired fasting glucose Plantar fasciitis, bilateral Obesity (BMI 30-39.9) Dyslipidemia (high LDL; low HDL) Pain in both feet Paresthesia of both feet Atrial fibrillation with rapid ventricular response Insomnia History of renal calculi Opiate addiction History of meningitis Smoker unmotivated to quit Squamous cell carcinoma of cervix, stage 2 GERD (gastroesophageal reflux disease) Essential hypertension Surgical History No pertinent past surgical history Family History Mother Leukemia Maternal Grandmother Ovarian cancer Diabetes mellitus Sister Diabetes mellitus Social History Housing: Apartment Patient Tobacco Use Status: Current everyday Tobacco user Cigarettes Per Day: 10 e-Cigarette/Vaping Use: Never Used service: No Current occupational status: employed Cognitive needs: No Hearing needs: No Vision needs: Yes Telehealth Telehealth Telehealth Platform: Telephone Location of provider rendering services: practice address Location of patient: address on file Patient Identification confirmed using: Name, : Yes Telehealth method: voice only Patient verbally consented to treatment: Yes Patient verbally consented to billing insurance company: Yes Patient informed of any privacy concerns related to visit: Yes Minutes spent on Phone/Video with Pt.: 45 Assessment & Plan Assessment & Plan (1) Obesity (BMI 30-39.9): Code(s): E66.9 - Obesity, unspecified Category: Medical Plan: 1. We discussed in detail the available therapeutic options: 1) his insurance requires participation in our lifestyle intervention program for 6 months before use of anti-obesity medications is considered. 2) We also discussed our lifestyle program either through me or with the use of our [employer] software epifanio for the meal and exercise plan. 3) We also discussed about the lap sleeve gastrectomy. I emphasized the importance of close follow-up, adherence to instructions and good communication. The surgery does not replace the need to change your lifestlyle which is the cause of the obesity problem. The surgery provides the motivation to try again to change your lifestyle, it reduces the appetite and make the transition to a better lifestyle easier and doubles the amount of weight you would lose compared to doing the lifestyle change without the surgery. You will need to be on a liquid diet with protein shakes for 2 weeks before surgery to maximize weight loss and boost your nutritional status to recover better from surgery and also for the first two weeks after surgery to let the stomach heal before we introduce other foods. After the first 2 weeks we will introduce protein bars and soft foods like scrambled eggs, cottage cheese and yogurt and after the 6th week will introduce meat, fish and cooked vegetables in small amounts. Over time you should be able to eat everything in small amounts. Side effects like nausea, vomiting, heartburn or abdominal pain are not common in the practice unless you are not following in the practice. This operation requires lifetime commitment to following in our practice and communication with me. You will much less weight and experience side effects if you don?t communicate or not following in the practice. Complications are rare and in our practice is about 1/10 of the national average. The patient will conser these options and she will get back to me for a decision.
== END 2024-12-19 13:15 | disposition home or self-care (01) ==
LOC: HO.HBS 09:34
PROVIDERS: PCP Internal Medicine; Visit Provider Surgery
DX: E66.9 Obesity, unspecified (principal); E66.812 Obesity, class 2; Z68.36 Body mass index [BMI] 36.0-36.9, adult
CPT/HCPCS: 99204